=== PATIENT | female | born 2005 | race Hispanic/Latino ===

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

== ENCOUNTER 2023-03-18 07:54 | Emergency (ER) | payer OTHER ==
--- OUTSIDE RECORDS SUMMARY | 2023-03-18 07:58 | XMS REPORT | Continuity of Care Document ---
:2005 Author Organization [facility] t Address [address] [facility]. [address] [place] [address] Care Team Providers Name Role Phone Shaila Silver Primary Care Physician [phone] SHAILA IZAGUIRRE Attending Clinician Unavailable Visit, Ang[facility] Nurse Attending Clinician Unavailable Shaila Silver Attending Clinician [phone] Doctor Unassigned, [place] Attending Clinician Unavailable SARAH BALBUENA Attending Clinician Unavailable Sarah Balbuena DO Attending Clinician AMOL VARMA Attending Clinician Unavailable Leila Conner Attending Clinician [phone] Amol Carmichael Attending Clinician Simone RN, Ruthann R Attending Clinician Unavailable ROXANA BORREGO Attending Clinician Unavailable Only, Gallo Db Test Attending Clinician Unavailable Roxana Yates Attending Clinician Valentín Lyons DO Attending Clinician Lab, Adc Fam Pob I Attending Clinician Unavailable Payers Payer Name Policy Type Policy Number Effective Date Expiration Date Arthur HEBERT [id number] 2018 00:00:00 [place] [id number] 2021 00:00:00 Problems Condition Condition Condition Status [place] [facility] Allergies, Adverse Reactions, Alerts Allergy Allergy Status Severity Reaction(s) Onset Inactive Treating Comm ents Source Name Type Date Date Clinician NO KNOWN Drug Active Univers ALLERGIE Class ity of S [facility] Social History Social Habit Start Date Stop Date Quantity Comments Source Gender identity Universit y [facility] Sexual orientation [facility] [place] Alcohol intake 2023-01-07 2023-01-07 Lifetime University of 00:00:00 00:00:00 non-drinker [facility] (finding) [place] Tobacco use and 2022-10-15 2022-10-15 Smokeless Universit y of exposure 00:00:00 00:00:00 tobacco non-user [facility] Exposure to 2022-07-13 2022-07-23 Not sure [facility] SARS-CoV-2 (event) 00:00:00 09:12:00 [facility] History of Social 2022-04-30 2022-04-30 Univers ity of function 00:00:00 00:00:00 [facility] Sex Assigned At [birth year] Universit y of 00:00:00 00:00:00 [facility] Smoking Status Start Date Stop Date Source Never smoked tobacco [facility] Medications Ordered Filled Start Stop Current Ordering Indication Dosage Frequency Signature Comments Components Source Medication Medication Date Date Medication? Clinician (SIG) Name Name medroxyPROG 2023- No [id number] 150mg Univers ESTERone 6-20 - ity of (DEPO-PROVE 20:15: 20:14 [place] RA) syringe 00 :00 Medical 150 mg [place] medroxyPROG 2023- No [id number] 150mg 150 mg, Univers ESTERone 6-20 -21 Intramuscu ity of (DEPO-PROVE 20:15: 20:14 lar, [place] RA) syringe 00 :00 [id number], Med ical 150 mg 4 doses, Branch First dose on Fri10/15/22 at 1515, Last dose on Fri06/24/23 at 1515, Routine medroxyPROG 2023- No [id number] 150mg Univers ESTERone 10-15 ity of (DEPO-PROVE 20:15: 20:14 [place] RA) syringe 00 :00 Medical 150 mg Branch medroxyPROG 2023- No [id number] 150mg 150 mg, Univers ESTERone 10-15 Intramuscu ity of (DEPO-PROVE 20:15: 20:14 [facility], [place] RA) syringe 00 :00 [id number], Med ical 150 mg 4 doses, Branch First dose on Fri10/15/22 at 1515, Last dose on Fri06/24/23 at 1515, Routine medroxyPROG 2023- No [id number] 150mg Univers ESTERone 10-15 ity of (DEPO-PROVE 20:15: 20:14 [place] RA) syringe 00 :00 Medical 150 mg Branch medroxyPROG 2023- No [id number] 150mg 150 mg, Univers ESTERone 10-15 Intramuscu ity of (DEPO-PROVE 20:15: 20:14 [facility], [place] RA) syringe 00 :00 [id number], Med ical 150 mg 4 doses, Branch First dose on Fri10/15/22 at 1515, Last dose on Fri06/24/23 at 1515, Routine medroxyPROG 2021-04- No [id number] 150mg Univers ESTERone 07-23 ity of (DEPO-PROVE 14:45: 14:44 [place] RA) syringe 00 :00 Medical 150 mg Branch medroxyPROG 2021-04- No [id number] 150mg 150 mg, Univers ESTERone 007-23 Intramuscu ity of (DEPO-PROVE 14:45: 14:44 [facility], [place] RA) syringe 00 :00 [id number], Med ical 150 mg 2 doses, Branch First dose on Fri02/05/22 at 0945, Last dose on Fri04/30/22 at 0945, Routine medroxyPROG 2021-043- No [id number] 150mg 150 mg, Univers ESTERone 003 Intramuscu ity of (DEPO-PROVE 14:45: 14:48 [facility], [place] RA) syringe 00 :00 [id number], Med ical 150 mg 2 doses, Branch First dose on Fri02/05/22 at 0945, Last dose on Fri04/30/22 at 0945, Routine medroxyPROG 2022-0 3- No [id number] 150mg Univers ESTERone 07-23 ity of (DEPO-PROVE 16:00: 16:44 [place] RA) 00 :00 Medical injection Branch 150 mg medroxyPROG 2022-0 2022- No [id number] 150mg 150 mg, Univers ESTERone 07-23 Intramuscu ity of (DEPO-PROVE 16:00: 16:44 [facility], [place] RA) 00 :00 [id number], Medical injection 4 doses, Branch 150 mg First dose on Fri07/23/21 at 1100, Last dose on Fri04/01/22 at 1100, Routine medroxyPROG 2022-0 3- No [id number] 150mg Univers ESTERone 07-23 ity of (DEPO-PROVE 16:00: 16:44 [place] RA) 00 :00 Medical injection Branch 150 mg medroxyPROG 2022-0 3- No [id number] 150mg Univers ESTERone 07-23 ity of (DEPO-PROVE 16:00: 16:44 [place] RA) 00 :00 Medical injection Branch 150 mg medroxyPROG 2022-0 3- No [id number] 150mg Univers ESTERone 07-23 ity of (DEPO-PROVE 16:00: 16:44 [place] RA) 00 :00 Medical injection Branch 150 mg medroxyPROG 2022-0 3- No [id number] 150mg Univers ESTERone -06-24 ity of (DEPO-PROVE 16:00: 16:44 [place] RA) 00 :00 Medical injection Branch 150 mg medroxyPROG 2022-0 2023- No [id number] 150mg Univers ESTERone 3-28 02-27 ity of (DEPO-PROVE 16:00: 16:44 [place] RA) 00 :00 Medical injection Branch 150 mg medroxyPROG 2022- No [id number] 150mg Univers ESTERone 07-23 ity of (DEPO-PROVE 16:00: 16:44 [place] RA) 00 :00 Medical injection Branch 150 mg medroxyPROG 2022- No [id number] 150mg 150 mg, Univers ESTERone 07-23 Intramuscu ity of (DEPO-PROVE 16:00: 16:44 lar, [place] RA) 00 :00 [id number], Medical injection 4 doses, Branch 150 mg First dose on Fri07/23/21 at 1100, Last dose on Fri04/01/22 at 1100, Routine medroxyPROG 2020-04- No [id number] 150mg Univers ESTERone 001-08 ity of (DEPO-PROVE 13:45: 13:44 [place] RA) 00 :00 Medical injection Branch 150 mg medroxyPROG 2020-04- No [id number] 150mg Univers ESTERone 0- ity of (DEPO-PROVE 13:45: 13:44 [place] RA) 00 :00 Medical injection Branch 150 mg medroxyPROG 2020-04- No [id number] 150mg Univers ESTERone 0- ity of (DEPO-PROVE 13:45: 13:44 [place] RA) 00 :00 Medical injection Branch 150 mg Vital Signs Vital Name Observation Time Observation Value Comments Source Systolic blood 2023-01-07 19:04:00 115 mm[Hg] Univer sity of pressure [facility] Diastolic blood 2023-01-07 19:04:00 63 mm[Hg] Unive rsity of pressure [facility] Heart rate 2023-01-07 19:04:00 65 /min [facility] Body temperature 2023-01-07 19:04:00 36.39 Lauren [facility] Respiratory rate 2023-01-07 19:04:00 18 /min [facility] Body height 2023-01-07 19:04:00 157.5 cm [facility] Body weight 2023-01-07 19:04:00 57.862 kg [facility] [place] [facility] BMI 2023-01-07 19:04:00 23.33 kg/m2 [facility] [place] [facility] Systolic blood 2022-10-15 19:02:00 108 mm[Hg] Univer sity of pressure [place] [facility] Diastolic blood 2022-10-15 19:02:00 64 mm[Hg] Unive rsity of pressure [facility] Heart rate 2022-10-15 19:02:00 80 /min [facility] [place] [facility] Body temperature 2022-10-15 19:02:00 36.67 Lauren [facility] [place] [facility] Respiratory rate 2022-10-15 19:02:00 18 /min Univ [facility] [place] [facility] Body height 2022-10-15 19:02:00 157.5 cm [facility] [place] [facility] Body weight 2022-10-15 19:02:00 57.743 kg [facility] [place] [facility] BMI 2022-10-15 19:02:00 23.28 kg/m2 [facility] [place] [facility] Systolic blood 2022-07-23 14:24:00 103 mm[Hg] Univer sity of pressure [place] [facility] Diastolic blood 2022-07-23 14:24:00 64 mm[Hg] Unive rsity of pressure [facility] Heart rate 2022-07-23 14:24:00 63 /min [facility] [place] [facility] Body temperature 2022-07-23 14:24:00 36.5 Lauren [facility] [place] [facility] Respiratory rate 2022-07-23 14:24:00 16 /min Univ ers[facility] [place] [facility] Body height 2022-07-23 14:24:00 157.5 cm [facility] [place] [facility] Body weight 2022-07-23 14:24:00 58.469 kg [facility] [place] [facility] BMI 2022-07-23 14:24:00 23.58 kg/m2 [facility] [place] [facility] Systolic blood 2022-04-30 14:39:00 119 mm[Hg] Univer sity of pressure [place] [facility] Diastolic blood 2022-04-30 14:39:00 56 mm[Hg] Unive rsity of pressure [facility] Heart rate 2022-04-30 14:39:00 61 /min [facility] [place] [facility] Body temperature 2022-04-30 14:39:00 36.72 Lauren [facility] [place] [facility] Respiratory rate 2022-04-30 14:39:00 18 /min Univ [facility] [place] [facility] Body height 2022-04-30 14:39:00 157.5 cm [facility] [place] [facility] Body weight 2022-04-30 14:39:00 56.359 kg [facility] [place] [facility] BMI 2022-04-30 14:39:00 22.73 kg/m2 Universi ty of [facility] Branch Systolic blood 2022-02-05 13:50:00 108 mm[Hg] Univer sity of pressure [facility] Branch Diastolic blood 2022-02-05 13:50:00 51 mm[Hg] Unive rsity of pressure [facility] Heart rate 2022-02-05 13:50:00 62 /min Universi ty of [facility] Body temperature 2022-02-05 13:50:00 36.61 Lauren [facility] [place] [facility] Respiratory rate 2022-02-05 13:50:00 18 /min Univ ersity of [facility] Branch Body height 2022-02-05 13:50:00 157.5 cm [facility] [place] [facility] Body weight 2022-02-05 13:50:00 57.017 kg [facility] [place] [facility] BMI 2022-02-05 13:50:00 22.99 kg/m2 [facility] [place] [facility] [place] Body mass index 2022-02-05 13:50:00 66.08 % Unive rsity of (BMI) [Percentile] [place] [facility] ical Per age and sex Branch Systolic blood 2022-01-22 14:14:00 108 mm[Hg] Univer sity of pressure [place] [facility] Diastolic blood 2022-01-22 14:14:00 65 mm[Hg] Unive rsity of pressure [place] [facility] Heart rate 2022-01-22 14:14:00 71 /min Universi ty of [facility] Body temperature 2022-01-22 14:14:00 36.44 Lauren Univ ersity of [facility] Branch Respiratory rate 2022-01-22 14:14:00 18 /min Univ [facility] [place] [facility] Body height 2022-01-22 14:14:00 157.5 cm Universi ty of [facility] Body weight 2022-01-22 14:14:00 56.728 kg Universi ty of [facility] BMI 2022-01-22 14:14:00 22.87 kg/m2 Universi ty of [facility] Body mass index 2022-01-22 14:14:00 65.07 % Unive rsity of (BMI) [Percentile] [facility] ica Per age and sex Branch Systolic blood 2021-09-13 13:20:00 115 mm[Hg] Univer sity of pressure [facility] Diastolic blood 2021-09-13 13:20:00 48 mm[Hg] Unive rsity of pressure [facility] Heart rate 2021-09-13 13:20:00 59 /min Universi ty of [facility] Body temperature 2021-09-13 13:20:00 37.28 Lauren Univ ersity of [facility] Respiratory rate 2021-09-13 13:20:00 18 /min Univ ersity of [facility] Body weight 2021-09-13 13:20:00 57.607 kg Universi ty of [facility] Oxygen saturation in 2021-09-13 13:20:00 99 /min [facility] Arterial blood by [facility] Pulse oximetry Branch Systolic blood 2021-07-23 15:21:00 110 mm[Hg] Univer sity of pressure [facility] Diastolic blood 2021-07-23 15:21:00 54 mm[Hg] Unive rsity of pressure [facility] Heart rate 2021-07-23 15:21:00 72 /min Universi ty of [facility] Body temperature 2021-07-23 15:21:00 36.28 Lauren Univ ersity of [facility] Respiratory rate 2021-07-23 15:21:00 20 /min Univ ersity of [facility] Body height 2021-07-23 15:21:00 157.5 cm Universi ty of [facility] Body weight 2021-07-23 15:21:00 57.777 kg Universi ty of [facility] BMI 2021-07-23 15:21:00 23.30 kg/m2 Universi ty of [facility] Body mass index 2021-07-23 15:21:00 70.26 % Unive rsity of (BMI) [Percentile] [place] Med ical Per age and sex Branch Procedures Procedure Date / Time Performed Performing Clinician Claude chacko ASSIGNMENT OF BENEFITS 2022-10-15 18:41:55 Doctor Unassigned, No [facility] Name [facility] POCT TEST 2022-01-22 14:17:00 [facility] 2021-09-13 13:25:00 Sarah Balbuena [facility] URINALYSIS 2021-09-13 13:24:00 Sarah Balbuena [facility] CONSENT/REFUSAL FOR 2021-09-13 13:16:37 Doctor Unassigned, [facility] TREAT[facility] GC & CHLAMYDIA 2021-07-23 15:53:00 Shaila Izaguirre [facility] AMPLIFIED ASSAY [facility] POCT TEST 2021-07-23 15:42:[address] [facility] Encounters Start End Encounter Admission Attending Care Care Encounter Source Date/Time Date/Time Type Type Clinicians Facility Department ID 2021-02-25 Emergency [facility] [id number] Univers 13:02:37 ity [facility] 2023-01-07 2023-01-07 Outpatient R DMITRIY [facility] [id number] Univers 13:00:00 14:10:36 SHAILA romero [facility] 2023-01-07 2023-01-07 Nurse Visit, [facility] Nurse [facility] 1.2 .840.114 [id number] Univers 13:00:00 14:10:36 Visit Shaila Izaguirre MACHINE SETUP OPERATOR [facility].13. [facility] 4.2.7.2.686 [place] as MATERNAL [id number] Med ical & CHILD [address] [place] [address] 2022-10-15 2022-10-15 Outpatient R DMITRIY [facility] [id number] Univers 13:30:00 15:08:26 SHAILA norman f [facility] 2022-10-15 2022-10-15 Office Dmitriy [facility] [id number] Univers 13:30:00 15:08:26 Visit Shaila C MACHINE SETUP OPERATOR 350.1.13.10 ity of [facility] 4.2.7.2.686 [place] as MATERNAL [id number] [facility] [address] [place] [address] 2022-10-15 2022-10-15 Orders Doctor THELMA 1.2.840.114 [id number] Univers 00:00:00 00:00:00 Only Unassigned, TIFFANY 350.1.13.10 [facility] 4.2.7.2.686 [place] as [id number] [address] 2022-07-23 2022-07-23 Outpatient R DMITRIY [facility] [id number] Univers 09:30:00 09:34:03 SHAILA palafox o [facility] 2022-07-23 2022-07-23 [facility] 1.2 .840.114 [id number] Univers 09:30:00 09:34:03 Visit Shaila Izaguirre MACHINE SETUP OPERATOR 350.1.13. 10 ity of [facility] 4.2.7.2.686 [place] MATERNAL [id number] [address] 2022-04-30 2022-04-30 Outpatient R DMITRIY [facility] [id number] Univers 08:30:00 08:48:20 SHAILA palafox o [facility] 2022-04-30 2022-04-30 Nurse [facility], [facility] 1.2 .840.114 [id number] Univers 08:30:00 08:48:20 Visit Shaila Izaguirre MACHINE SETUP OPERATOR 350.1.13. 10 ity of [facility] 4.2.7.2.686 [place] as MATERNAL [id number] [facility] & CHILD [address] [place] [address] 2022-02-05 2022-02-05 Nurse Visit, Maribel Nurse [facility] 1.2 .840.114 [id number] Univers 08:30:00 08:54:05 Visit Shaila Izaguirre MACHINE SETUP OPERATOR 350.1.13. 10 ity of REGIONAL 4.2.7.2.686 [place] as MATERNAL [id number] [facility] & [address] 2022-02-05 2022-02-05 Outpatient R DMITRIY [facility] [id number] Univers 08:30:00 08:30:00 SHAILA romero [facility] 2022-01-22 2022-01-22 Nurse Visit, [facility] 1.2 .840.114 [id number] Univers 09:00:00 09:31:08 Visit Shaila Izaguirre Elida MACHINE SETUP OPERATOR 350.1.13. 10 ity of REGIONAL 4.2.7.2.686 [place] MATERNAL [id number] [address] 2022-01-22 2022-01-22 [facility] [id number] Univers 09:00:00 09:00:00 SHAILA romero [facility] 2022-01-22 2022-01-22 Letter Visit, [facility] 1.2.840.114 [id number] Univers 00:00:00 00:00:00 (Out) [facility] MACHINE SETUP OPERATOR 350.1.13.10 ity of Nurse [facility] 4.2.7.2.686 [place] as MATERNAL [id number] [address] 2021-10-15 2021-10-15 Outpatient R [facility] [id number] Univers 09:00:00 09:00:00 ity [facility] 2021-10-15 2021-10-15 [facility] [id number] Univers 09:00:00 09:00:00 SHAILA norman heather [facility] 2021-09-13 2021-09-13 Emergency X SREE NDMCKAYLA ERT [id number] Univers 08:23:00 10:01:00 SARAH palafox [facility] 2021-09-13 2021-09-13 Emergency Sree [facility] 1.2.840.114 [id number] Univers 08:23:00 10:01:00 Sarah ARTIS 350.1.13.10 ity of [place] 4.2.7.2.686 [facility] [id number] [facility] [address] [place] 2021-09-12 2021-09-12 [facility] 1.2.840.114 [id number] Univers 00:00:00 00:00:00 Shaila C MACHINE SETUP OPERATOR 350.1.13.10 ity of [facility] 4.2.7.2.686 [place] MATERNAL [id number] [facility] [address] [place] [address] 2021-07-23 2021-07-23 Office [facility] [id number] Univers 10:00:00 10:54:38 Visit Shaila Marrero MACHINE SETUP OPERATOR 350.1.13.10 ity of [facility] 4.2.7.2.686 [place] as MATERNAL [id number] [facility] & [address] 2021-07-23 2021-07-23 Outpatient [facility] [id number] Univers 10:00:00 10:54:38 SHAILA palafox o [facility] 2021-07-23 2021-07-23 Outpatient [facility] [id number] Univers 10:00:00 10:00:00 SHAILA overtony o f [facility] 2021-07-23 2021-07-23 Outpatient [facility] [id number] Univers 10:00:00 10:00:00 SHAILA palafox o [facility] 2021-07-23 2021-07-23 Orders Doctor THELMA 1.2.840.114 [id number] Univers 00:00:00 00:00:00 Only Unassigned, TIFFANY 350.1.13.10 ity of [place] [facility] 4.2.7.2.686 [place] as [id number] [facility] [address] [place] 2021-07-23 2021-07-23 Letter [facility] 1.2.862.482 [id number] Univers 00:00:00 00:00:00 (Out) Shaila Marrero MACHINE SETUP OPERATOR 350.1.13.10 ity of [facility] 4.2.7.2.686 [place] MATERNAL [id number] [facility] [address] [place] [address] 2021-07-05 2021-07-05 Outpatient Jeremiah IZAGUIRRE [facility] [id number] Univers 10:00:00 10:14:48 SHAILASHERICE romero [facility] 2021-07-05 2021-07-05 Nurse Visit, [facility] Nurse [facility] 1.2 .840.114 [id number] Univers 10:00:00 10:14:48 Visit Shaila Izaguirre MACHINE SETUP OPERATOR 350.1.13. 10 ity of [facility] 4.2.7.2.686 [place] as MATERNAL [id number] [facility] [address] [place] [address] 2021-07-05 2021-07-05 Office Dmitriy [facility] [id number] Univers 09:45:00 10:00:00 Visit Shaila Marrero MACHINE SETUP OPERATOR 350.1.13.10 ity of [facility] 4.2.7.2.686 [place] MATERNAL [id number] Med ical & CHILD [address] [place] [address] 2021-07-05 2021-07-05 Outpatient Jeremiah IZAGUIRRE [facility] [id number] Univers 09:45:00 09:45:00 SHAILA vivienne norman [facility] 2021-07-05 2021-07-05 Letter Dmitriy [facility] [id number] Univers 00:00:00 00:00:00 (Out) Shaila Marrero MACHINE SETUP OPERATOR 350.1.13.10 ity of [facility] 4.2.7.2.686 [place] as MATERNAL [id number] [facility] & CHILD [address] [place] [address] 2021-06-06 2021-06-06 Outpatient Jeremiah VARMA [facility] [id number] Univers 08:30:00 08:30:00 AMOL palafox o [facility] 2021-05-01 2021-05-01 Outpatient Jeremiah VARMA [facility] [id number] Univers 08:30:00 08:30:00 AMOL norman [facility] 2021-02-06 2021-02-06 Nurse Visit, TheoRmchp Nurse [facility] 1.2 .840.114 [id number] Univers 08:05:48 08:33:13 Visit Leila Pathak MACHINE SETUP OPERATOR 350.1.13 .10 ity [facility] 4.2.7.2.686 [place] as MATERNAL [id number] [facility] & [address] 2021-02-06 2021-02-06 Outpatient R HOLLY [facility] [id number] Univers 08:30:00 08:30:00 LEILA [facility] 2021-02-05 2021-02-05 Outpatient R [facility] [id number] Univers 14:00:00 14:00:00 [facility] 2021-01-22 2021-01-22 Nurse Visit, Maribel Nurse [facility] 1.2 .840.114 [id number] Univers 14:06:34 14:21:34 Visit Amol Varma MACHINE SETUP OPERATOR 350.1.13.10 ity [facility] 4.2.7.2.686 [place] as MATERNAL [id number] [facility] & CHILD [address] [place] [address] 2021-01-22 2021-01-22 Outpatient R [facility] [id number] Univers 14:00:00 14:00:00 [facility] 2020-12-23 2020-12-23 Telephone THELMA [place] [id number] Univers 00:00:00 00:00:00 Ruthann ALLEN 350.1.13.10 it [facility] 4.2.7.2.686 [place] as [id number] [address] 2020-12-22 2020-12-22 Outpatient R ELMO [facility] [id number] Univers 10:10:00 10:10:00 [facility] 2020-12-22 2020-12-22 Laboratory Only, Ang Db Test [facility] 1.2.8 40.114 [id number] Univers 09:58:55 10:08:55 Only Elmo [facility] 350.1.13.10 [facility] 4.2.7.2.686 [place] as Celso?Blea [id number] La randy murrieta [address] [place] [address] Medical Office Building 2020-10-04 2020-10-04 Outpatient R [facility] [id number] Univers 10:00:00 10:00:00 ity of [facility] 2020-09-20 2020-09-20 Nurse Visit, Gallo-Rmchp Nurse [facility] 1.2 .840.114 [id number] Univers 13:26:42 13:56:43 Visit Amol Varma MACHINE SETUP OPERATOR 350.1.13.10 ity [facility] 4.2.7.2.686 [place] as MATERNAL [id number] Med ical & CHILD [address] [place] [address] 2020-09-20 2020-09-20 Outpatient R [facility] [id number] Univers 13:45:00 13:45:00 ity of [facility] 2020-09-20 2020-09-20 Outpatient R AVANI [facility] [id number] Univers 08:30:00 08:30:00 AMOL ity o f [facility] 2020-09-20 2020-09-20 Orders Doctor THELMA [id number] Univers 00:00:00 00:00:00 Only Unassigned, TIFFANY [id number] ity of [place] [facility] [id number] [place] as [phone] [facility] [address] 2020-09-19 2020-09-19 Outpatient R [facility] [id number] Univers 10:00:00 10:00:00 ity of [facility] 2020-08-10 2020-08-10 Emergency Singer [facility] [id number] Univers 08:20:00 10:10:00 Valentín Artis [id number] i ty [facility] [id number] [place] [phone] [facility] [address] 2020-08-10 2020-08-10 Orders Doctor RENEE [id number] Univers 00:00:00 00:00:00 Only UnassignedTIFFANY [id number] ity of [place] [facility] [id number] [place] as [phone] [address] 2020-08-03 2020-08-03 Outpatient R AVANI [facility] [id number] Univers 15:30:00 15:30:00 AMOL palafox o heather [facility] 2020-08-03 2020-08-03 Outpatient R [facility] [id number] Univers 09:30:00 09:30:00 ity [facility] 2020-07-20 2020-07-20 [facility] [id number] Univers 10:10:16 11:02:38 Visit [facility] Jeremiah MACHINE SETUP OPERATOR [id number] ity [facility] [id number] [place] as MATERNAL [phone] Med ical & CHILD [address] [place] [address] 2020-07-20 2020-07-20 Outpatient R AVANI [facility] [id number] Univers 09:15:00 09:15:00 HELIZBET romero [facility] 2020-07-20 2020-07-20 Orders Doctor THELMA 1..840.114 [id number] Univers 00:00:00 00:00:00 Only Unassigned, TIFFANY [id number] ity of [place] [facility] [id number] [place] as [phone] [address] 2020-05-02 2020-05-02 Outpatient R ELMO [facility] [id number] Univers 14:20:00 14:20:00 ROXANA ity [facility] 2020-05-02 2020-05-02 Laboratory Lab, Adc Fam Pob I [facility] 1.2. [id number] Univers 10:03:49 10:23:49 Only Elmo [id number] [facility] [id number] [place] as Professio [phone] La dical [facility] [address] 2020-05-01 2020-05-01 Telephone Singer [facility] [id number] Univers 00:00:00 00:00:00 Valentín [employer] [id number] it y of [place] [id number] [place] as Professio [phone] La dical nal [address] 2020-04-15 2020-04-15 Outpatient R ELMO [facility] [id number] Univers 16:20:00 16:20:00 ROXANA gregoria [facility] 2020-04-15 2020-04-15 Laboratory Lab, Adc Fam Pob I [facility] 1.2. [id number] [id number] Univers 15:25:01 15:45:01 Only Roxana Borrego [id number] ity of [place] [id number] [place] as Professio [phone] La dical nal 044 [facility] One Results Test Description Test Time Test Comments Results Result Comments Source POCT TEST 2022-01-22 14:17:00 Test Item Value Reference Range Interpretation Comme nts POCT PREG (test code = 1605) Negative On board controls acceptable with C Line (test code = 3574) Yes POCT PREG LOT # (test code = 3575) POCT PREG TEST DATE (test code = 3576) [facility] [id number] 13:25:00 Test Item Value Reference Range Interpretation Comments POCT PREG (test code = 1605) negative On board controls acceptable with present C Line (test code = 3574) POCT PREG LOT # (test code = 3575) [id number] POCT PREG TEST DATE (test code = 3576) Lab Interpretation (test code = Normal 89506-4) [facility] [id number] 15:42:00 Test Item Value Reference Range Interpretation Comments POCT PREG (test code = 1605) Negative On board controls acceptable with C Yes Line (test code = 3574) POCT PREG LOT # (test code = 3575) POCT PREG TEST DATE (test code = 3576) [facility]
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
[2023-03-18] MEDS ORDERED: SILVER SULFADIAZINE 1% 25 GM TOP ONE (08:19)
[2023-03-18] MEDS ORDERED: IBUPROFEN 200 MG TAB PO ONE (08:19)
[2023-03-18 08:34] VITALS: BP 115/68; TEMP 98.2; O2SAT 100
== END 2023-03-18 08:28 | disposition home or self-care (01) ==
LOC: ER 07:54
DX: T22.212A Burn of second degree of left forearm, initial encounter (principal); T31.0 Burns involving less than 10% of body surface; X10.2XXA Contact with fats and cooking oils, initial encounter; Y93.G3 Activity, cooking and baking
CPT/HCPCS: 99283

== ENCOUNTER 2023-10-16 12:12 | Emergency (ER) | payer SELFPAY ==
--- OUTSIDE RECORDS SUMMARY | 2023-10-16 12:15 | XMS REPORT | Continuity of Care Document ---
Author Name Unknown Address [address] [facility] [address] [place] [address] [facility] thconnect Address [address] [facility] [place] [address] Care Team Providers Care Inspector Outside Production Name Role Phone SHAILA IZAGUIRRE Primary Care Physician Unav ailLÁZARO eKith Attending Clinician Unavailable Provider, Maribel Temp Attending Clinician Violet vailable Zaida Quintero CNM Attending Clinician [phone] ZAIDA QUINTERO Attending Clinician Unavaila ble Visit, Kyliechkathy Nurse Attending Clinician Unava ilpeggy Izaguirre ANDREAPShaila Attending Clinician + SHAILA IZAGUIRRE Attending Clinician Unavail able Doctor Unassigned, [place] Attending Clinician U navailSARAH Jackson Attending Clinician Unavailab Sarah Falk DO Attending Clinician [phone] AMOL VARMA Attending Clinician Unavailab Leila Chavarria Attending Clinician +[phone] Amol Carmichael Attending Clinician [phone] Simone RN, Ruthann R Attending Clinician UnavailROXAAN Vogt Attending Clinician Unavailable Only, Gallo Db Ha Attending Clinician UnavailRoxana John Attending Clinician [phone] Valentín Lyons DO Attending Clinician [phone] Lab, Adc Fam Pob I Attending Clinician Unavailab le Payers Payer Name Policy Type Policy Number Effective Date Expirati on Date Source [employer] [id number] 2018 00:00:00 [facility] [id number] 2023 00:00:00 [place] [id number] 2021 00:00:00 Problems Condition Name Condition Details Condition Category Status Onset Date Resolution Date Last Treatment Date Treating Clinician Comments Source Other general counseling and advice for contracept joshua management Other general counseling and advice for contracept joshua management Disease Active 07-23 00:00: 00 [facility] Screening examinatio n for STD (sexually transmitte d disease) Screening examinatio n for STD (sexually transmitte d disease) Disease Active 07-20 00:00: 00 [facility] Need for HPV vaccinatio n Need for HPV vaccinatio n Disease Active 07-20 00:00: 00 [facility] Allergies, Adverse Reactions, Alerts Allergy Name Allergy Type Status Severity Reaction(s) Onset Date Inactive Date Treating Clinician Comments Source NO KNOWN ALLERGIE S Drug Class Active [facility] Social History Social Habit Start Date Stop Date Quantity Comments Source Gender identity [facility] Alcoholic beverage intake 2023-09-09 00:00:00 2023-09-09 00:00:00 Lifetime non-drinker (finding) [facility] History of Social function 2023-04-04 00:00:00 2023-04-04 00:00:00 [facility] Alcohol intake 2023-04-04 00:00:00 2023-04-04 00:00:00 Lifetime non-drinker (finding) [facility] Tobacco use and exposure 2022-10-15 00:00:00 2022-10-15 00:00:00 Smokeless tobacco non-user [facility] Exposure to SARS-CoV-2 (event) 2022-07-13 00:00:00 2022-07-23 09:12:00 Not sure [facility] Sex assigned at 2003 00:00:00 2005 00:00:00 [facility] Smoking Status Start Date Stop Date Source Never smoked tobacco [facility] Medications Ordered Medication Name Filled Medication Name Start Date Stop Date Current Medication? Ordering Clinician Indication Dosage Frequency Signature (SIG) Comments Components Source medroxyPROG ESTERone (DEPO-PROVE RA) 150 mg/mL syringe 09-08 00:00: 00 Yes [id number] 150mg 1 mL by Intramuscu lar route every 3 (three) months. [facility] medroxyPROG ESTERone (DEPO-PROVE RA) syringe 150 mg 10-15 20:15: 00 09-08 18:26 :08 No [id number] 150mg 150 mg, Intramuscu lar, [id number], 4 doses, First dose on Fri10/15/22 at 1515, Last dose on Fri06/24/23 at 1515, Routine [facility] medroxyPROG ESTERone (DEPO-PROVE RA) syringe 150 mg 2021-04 14:45: 00 04-30 14:48 :00 No [id number] 150mg 150 mg, Intramuscu lar, [id number], 2 doses, First dose on Fri02/05/22 at 0945, Last dose on Fri04/30/22 at 0945, Routine [facility] medroxyPROG ESTERone (DEPO-PROVE RA) injection 150 mg 07-23 16:00: 00 06-24 16:44 :00 No [id number] 150mg 150 mg, Intramuscu lar, [id number], 4 doses, First dose on Fri07/23/21 at 1100, Last dose on Fri04/01/22 at 1100, Routine [facility] medroxyPROG ESTERone (DEPO-PROVE RA) injection 150 mg 2020-04 012 13:45: 00 01-08 13:44 :00 No [id number] 150mg [facility] Immunizations Ordered Immunization Name Filled Immunization Name Date Status Comments Source HPV 2021-01-22 00:00:00 Completed [facility] HPV 2021-01-22 00:00:00 Completed [facility] HPV 2021-01-22 00:00:00 Completed [facility] HPV 2021-01-22 00:00:00 Completed [facility] HPV 2021-01-22 00:00:00 Completed [facility] HPV 2021-01-22 00:00:00 Completed [facility] HPV 2021-01-22 00:00:00 Completed [facility] HPV 2021-01-22 00:00:00 Completed [facility] HPV 2021-01-22 00:00:00 Completed [facility] HPV 2021-01-22 00:00:00 Completed [facility] HPV 2021-01-22 00:00:00 Completed [facility] HPV 2021-01-22 00:00:00 Completed [facility] SARS-COV-2 COVID-19 PFIZER VACCINE 2021-01-19 00:00:00 Completed [facility] SARS-COV-2 COVID-19 PFIZER VACCINE 2021-01-19 00:00:00 Completed [facility] SARS-COV-2 COVID-19 PFIZER VACCINE 2021-01-19 00:00:00 Completed [facility] SARS-COV-2 COVID-19 PFIZER VACCINE 2021-01-19 00:00:00 Completed [facility] SARS-COV-2 COVID-19 PFIZER VACCINE 2021-01-19 00:00:00 Completed [facility] SARS-COV-2 COVID-19 PFIZER VACCINE 2020-12-29 00:00:00 Completed [facility] SARS-COV-2 COVID-19 PFIZER VACCINE 2020-12-29 00:00:00 Completed [facility] SARS-COV-2 COVID-19 PFIZER VACCINE 2020-12-29 00:00:00 Completed [facility] SARS-COV-2 COVID-19 PFIZER VACCINE 2020-12-29 00:00:00 Completed [facility] SARS-COV-2 COVID-19 PFIZER VACCINE 2020-12-29 00:00:00 Completed [facility] HPV9 2020-09-20 00:00:00 Completed [facility] HPV9 2020-09-20 00:00:00 Completed [facility] HPV9 2020-09-20 00:00:00 Completed [facility] HPV9 2020-09-20 00:00:00 Completed [facility] HPV9 2020-09-20 00:00:00 Completed [facility] HPV9 2020-09-20 00:00:00 Completed [facility] HPV9 2020-09-20 00:00:00 Completed [facility] HPV9 2020-09-20 00:00:00 Completed [facility] HPV9 2020-09-20 00:00:00 Completed [facility] HPV9 2020-09-20 00:00:00 Completed [facility] HPV9 2020-09-20 00:00:00 Completed [facility] HPV9 2020-09-20 00:00:00 Completed [facility] HPV9 2020-07-20 00:00:00 Completed [facility] HPV9 2020-07-20 00:00:00 Completed [facility] HPV9 2020-07-20 00:00:00 Completed [facility] HPV9 2020-07-20 00:00:00 Completed [facility] HPV9 2020-07-20 00:00:00 Completed [facility] HPV9 2020-07-20 00:00:00 Completed [facility] HPV9 2020-07-20 00:00:00 Completed [facility] HPV9 2020-07-20 00:00:00 Completed [facility] HPV9 2020-07-20 00:00:00 Completed [facility] HPV9 2020-07-20 00:00:00 Completed [facility] HPV9 2020-07-20 00:00:00 Completed [facility] HPV9 2020-07-20 00:00:00 Completed [facility] TDAP 2014-06-16 00:00:00 Completed [facility] TDAP 2014-06-16 00:00:00 Completed [facility] TDAP 2014-06-16 00:00:00 Completed [facility] TDAP 2014-06-16 00:00:00 Completed [facility] TDAP 2014-06-16 00:00:00 Completed [facility] Varicella (varivax)(chicken pox) 2009-09-06 00:00:00 Completed [facility] Varicella (varivax)(chicken pox) 2009-09-06 00:00:00 Completed [facility] Varicella (varivax)(chicken pox) 2009-09-06 00:00:00 Completed [facility] Varicella (varivax)(chicken pox) 2009-09-06 00:00:00 Completed [facility] Varicella (varivax)(chicken pox) 2009-09-06 00:00:00 Completed [facility] DTaP, Unspecified Formulation 2008-08-24 00:00:00 Completed [facility] IPV 2008-08-24 00:00:00 Completed [facility] DTaP, Unspecified Formulation 2008-08-24 00:00:00 Completed [facility] IPV 2008-08-24 00:00:00 Completed [facility] DTaP, Unspecified Formulation 2008-08-24 00:00:00 Completed [facility] IPV 2008-08-24 00:00:00 Completed [facility] DTaP, Unspecified Formulation 2008-08-24 00:00:00 Completed [facility] IPV 2008-08-24 00:00:00 Completed [facility] DTaP, Unspecified Formulation 2008-08-24 00:00:00 Completed [facility] IPV 2008-08-24 00:00:00 Completed [facility] Pediarix (dtap/hep B/ipv) 2006-07-21 00:00:00 Completed [facility] HEPATITIS A 2006-07-21 00:00:00 Completed [facility] HIB 4 Dose Schedule 2006-07-21 00:00:00 Completed [facility] Proquad (MMR/VARICELLA) 2006-07-21 00:00:00 Completed [facility] Pediarix (dtap/hep B/ipv) 2006-07-21 00:00:00 Completed [facility] HEPATITIS A 2006-07-21 00:00:00 Completed [facility] HIB 4 Dose Schedule 2006-07-21 00:00:00 Completed [facility] Proquad (MMR/VARICELLA) 2006-07-21 00:00:00 Completed [facility] Pediarix (dtap/hep B/ipv) 2006-07-21 00:00:00 Completed [facility] HEPATITIS A 2006-07-21 00:00:00 Completed [facility] HIB 4 Dose Schedule 2006-07-21 00:00:00 Completed [facility] Proquad (MMR/VARICELLA) 2006-07-21 00:00:00 Completed [facility] Pediarix (dtap/hep B/ipv) 2006-07-21 00:00:00 Completed [facility] HEPATITIS A 2006-07-21 00:00:00 Completed [facility] HIB 4 Dose Schedule 2006-07-21 00:00:00 Completed [facility] Proquad (MMR/VARICELLA) 2006-07-21 00:00:00 Completed [facility] Pediarix (dtap/hep B/ipv) 2006-07-21 00:00:00 Completed [facility] HEPATITIS A 2006-07-21 00:00:00 Completed [facility] HIB 4 Dose Schedule 2006-07-21 00:00:00 Completed [facility] Proquad (MMR/VARICELLA) 2006-07-21 00:00:00 Completed [facility] HEPATITIS A 2005-04-23 00:00:00 Completed [facility] MMR 2005-04-23 00:00:00 Completed [facility] Varicella (varivax)(chicken pox) 2005-04-23 00:00:00 Completed [facility] HEPATITIS A 2005-04-23 00:00:00 Completed [facility] MMR 2005-04-23 00:00:00 Completed [facility] Varicella (varivax)(chicken pox) 2005-04-23 00:00:00 Completed [facility] HEPATITIS A 2005-04-23 00:00:00 Completed [facility] MMR 2005-04-23 00:00:00 Completed [facility] Varicella (varivax)(chicken pox) 2005-04-23 00:00:00 Completed [facility] HEPATITIS A 2005-04-23 00:00:00 Completed [facility] MMR 2005-04-23 00:00:00 Completed [facility] Varicella (varivax)(chicken pox) 2005-04-23 00:00:00 Completed [facility] HEPATITIS A 2005-04-23 00:00:00 Completed [facility] MMR 2005-04-23 00:00:00 Completed [facility] Varicella (varivax)(chicken pox) 2005-04-23 00:00:00 Completed [facility] Pediarix (dtap/hep B/ipv) 2005-03-26 00:00:00 Completed [facility] HIB 3 Dose Schedule 2005-03-26 00:00:00 Completed [facility] Pneumococcal 7 Conjugate, PCV7 (Prevnar7) 2005-03-26 00:00:00 Completed [facility] Pediarix (dtap/hep B/ipv) 2005-03-26 00:00:00 Completed [facility] HIB 3 Dose Schedule 2005-03-26 00:00:00 Completed [facility] Pneumococcal 7 Conjugate, PCV7 (Prevnar7) 2005-03-26 00:00:00 Completed [facility] Pediarix (dtap/hep B/ipv) 2005-03-26 00:00:00 Completed [facility] HIB 3 Dose Schedule 2005-03-26 00:00:00 Completed [facility] Pneumococcal 7 Conjugate, PCV7 (Prevnar7) 2005-03-26 00:00:00 Completed [facility] Pediarix (dtap/hep B/ipv) 2005-03-26 00:00:00 Completed [facility] HIB 3 Dose Schedule 2005-03-26 00:00:00 Completed [facility] Pneumococcal 7 Conjugate, PCV7 (Prevnar7) 2005-03-26 00:00:00 Completed [facility] Pediarix (dtap/hep B/ipv) 2005-03-26 00:00:00 Completed [facility] HIB 3 Dose Schedule 2005-03-26 00:00:00 Completed [facility] Pneumococcal 7 Conjugate, PCV7 (Prevnar7) 2005-03-26 00:00:00 Completed [facility] Pediarix (dtap/hep B/ipv) 2003 00:00:00 Completed [facility] HIB 4 Dose Schedule 2003 00:00:00 Completed [facility] Pneumococcal 7 Conjugate, PCV7 (Prevnar7) 2003 00:00:00 Completed [facility] Pediarix (dtap/hep B/ipv) 2003 00:00:00 Completed [facility] HIB 4 Dose Schedule 2003 00:00:00 Completed [facility] Pneumococcal 7 Conjugate, PCV7 (Prevnar7) 2003 00:00:00 Completed [facility] Pediarix (dtap/hep B/ipv) 2003 00:00:00 Completed [facility] HIB 4 Dose Schedule 2003 00:00:00 Completed [facility] Pneumococcal 7 Conjugate, PCV7 (Prevnar7) 2003 00:00:00 Completed [facility] Pediarix (dtap/hep B/ipv) 2003 00:00:00 Completed [facility] HIB 4 Dose Schedule 2003 00:00:00 Completed [facility] Pneumococcal 7 Conjugate, PCV7 (Prevnar7) 2003 00:00:00 Completed [facility] Pediarix (dtap/hep B/ipv) 2003 00:00:00 Completed [facility] HIB 4 Dose Schedule 2003 00:00:00 Completed [facility] Pneumococcal 7 Conjugate, PCV7 (Prevnar7) 2003 00:00:00 Completed [facility] Hep B, Adol or Pedi Dosage 2003 00:00:00 Completed [facility] Hep B, Adol or Pedi Dosage 2003 00:00:00 Completed [facility] Hep B, Adol or Pedi Dosage 2003 00:00:00 Completed [facility] Hep B, Adol or Pedi Dosage 2003 00:00:00 Completed [facility] Hep B, Adol or Pedi Dosage 2003 00:00:00 Completed [facility] HPV9 Unknown Completed [facility] HPV9 Unknown Completed [facility] HPV Unknown Completed [facility] SARS-COV-2 COVID-19 PFIZER VACCINE Unknown Completed [facility] SARS-COV-2 COVID-19 PFIZER VACCINE Unknown Completed [facility] DTaP, Unspecified Formulation Unknown Completed [facility] Pediarix (dtap/hep B/ipv) Unknown Completed [facility] Pediarix (dtap/hep B/ipv) Unknown Completed [facility] Pediarix (dtap/hep B/ipv) Unknown Completed [facility] HEPATITIS A Unknown Completed [facility] HEPATITIS A Unknown Completed [facility] Hep B, Adol or Pedi Dosage Unknown Completed [facility] HIB 3 Dose Schedule Unknown Completed [facility] HIB 4 Dose Schedule Unknown Completed [facility] HIB 4 Dose Schedule Unknown Completed [facility] MMR Unknown Completed [facility] Proquad (MMR/VARICELLA) Unknown Completed [facility] Pneumococcal 7 Conjugate, PCV7 (Prevnar7) Unknown Completed [facility] Pneumococcal 7 Conjugate, PCV7 (Prevnar7) Unknown Completed [facility] IPV Unknown Completed [facility] TDAP Unknown Completed [facility] Varicella (varivax)(chicken pox) Unknown Completed [facility] Varicella (varivax)(chicken pox) Unknown Completed [facility] HPV9 Unknown Completed [facility] HPV9 Unknown Completed [facility] HPV Unknown Completed [facility] SARS-COV-2 COVID-19 PFIZER VACCINE Unknown Completed [facility] SARS-COV-2 COVID-19 PFIZER VACCINE Unknown Completed [facility] DTaP, Unspecified Formulation Unknown Completed [facility] Pediarix (dtap/hep B/ipv) Unknown Completed [facility] Pediarix (dtap/hep B/ipv) Unknown Completed [facility] Pediarix (dtap/hep B/ipv) Unknown Completed [facility] HEPATITIS A Unknown Completed [facility] HEPATITIS A Unknown Completed [facility] Hep B, Adol or Pedi Dosage Unknown Completed [facility] HIB 3 Dose Schedule Unknown Completed [facility] HIB 4 Dose Schedule Unknown Completed [facility] HIB 4 Dose Schedule Unknown Completed [facility] MMR Unknown Completed [facility] Proquad (MMR/VARICELLA) Unknown Completed [facility] Pneumococcal 7 Conjugate, PCV7 (Prevnar7) Unknown Completed [facility] Pneumococcal 7 Conjugate, PCV7 (Prevnar7) Unknown Completed [facility] IPV Unknown Completed [facility] TDAP Unknown Completed [facility] Varicella (varivax)(chicken pox) Unknown Completed [facility] Varicella (varivax)(chicken pox) Unknown Completed [facility] HPV9 Unknown Completed [facility] HPV9 Unknown Completed [facility] HPV Unknown Completed [facility] SARS-COV-2 COVID-19 PFIZER VACCINE Unknown Completed [facility] SARS-COV-2 COVID-19 PFIZER VACCINE Unknown Completed [facility] DTaP, Unspecified Formulation Unknown Completed [facility] Pediarix (dtap/hep B/ipv) Unknown Completed [facility] Pediarix (dtap/hep B/ipv) Unknown Completed [facility] Pediarix (dtap/hep B/ipv) Unknown Completed [facility] HEPATITIS A Unknown Completed [facility] HEPATITIS A Unknown Completed [facility] Hep B, Adol or Pedi Dosage Unknown Completed [facility] HIB 3 Dose Schedule Unknown Completed [facility] HIB 4 Dose Schedule Unknown Completed [facility] HIB 4 Dose Schedule Unknown Completed [facility] MMR Unknown Completed [facility] Proquad (MMR/VARICELLA) Unknown Completed [facility] Pneumococcal 7 Conjugate, PCV7 (Prevnar7) Unknown Completed [facility] Pneumococcal 7 Conjugate, PCV7 (Prevnar7) Unknown Completed [facility] IPV Unknown Completed [facility] TDAP Unknown Completed [facility] Varicella (varivax)(chicken pox) Unknown Completed [facility] Varicella (varivax)(chicken pox) Unknown Completed [facility] Vital Signs Vital Name Observation Time Observation Value Comments S ource Systolic blood pressure 2023-09-09 18:06:00 99 mm[Hg] [facility] Diastolic blood pressure 2023-09-09 18:06:00 54 mm[Hg] [facility] Heart rate 2023-09-09 18:06:00 58 /[facility] 2023-09-09 18:06:00 36.67 Lauren [facility] Respiratory rate 2023-09-09 18:06:00 18 /min [facility] Body height 2023-09-09 18:06:00 157.5 cm [facility] Body weight 2023-09-09 18:06:00 60.963 kg [facility] BMI 2023-09-09 18:06:00 24.58 kg/m2 [facility] Systolic blood pressure 2023-04-04 19:39:00 112 mm[Hg] [facility] Diastolic blood pressure 2023-04-04 19:39:00 63 mm[Hg] [facility] Heart rate 2023-04-04 19:39:00 56 /min [facility] Body temperature 2023-04-04 19:39:00 36.89 Lauren [facility] Respiratory rate 2023-04-04 19:39:00 18 /min [facility] Body height 2023-04-04 19:39:00 157.5 cm [facility] Body weight 2023-04-04 19:39:00 57.561 kg [facility] BMI 2023-04-04 19:39:00 23.21 kg/m2 [facility] Systolic blood pressure 2023-01-07 19:04:00 115 mm[Hg] [facility] Diastolic blood pressure 2023-01-07 19:04:00 63 mm[Hg] [facility] Heart rate 2023-01-07 19:04:00 65 /min [facility] Body temperature 2023-01-07 19:04:00 36.39 Lauren [facility] Respiratory rate 2023-01-07 19:04:00 18 /min [facility] Body height 2023-01-07 19:04:00 157.5 cm [facility] Body weight 2023-01-07 19:04:00 57.862 kg [facility] BMI 2023-01-07 19:04:00 23.33 kg/m2 [facility] Systolic blood pressure 2022-10-15 19:02:00 108 mm[Hg] [facility] Diastolic blood pressure 2022-10-15 19:02:00 64 mm[Hg] [facility] Heart rate 2022-10-15 19:02:00 80 /min [facility] Body temperature 2022-10-15 19:02:00 36.67 Lauren [facility] Respiratory rate 2022-10-15 19:02:00 18 /min [facility] Body height 2022-10-15 19:02:00 157.5 cm [facility] Body weight 2022-10-15 19:02:00 57.743 kg [facility] BMI 2022-10-15 19:02:00 23.28 kg/m2 [facility] Systolic blood pressure 2022-07-23 14:24:00 103 mm[Hg] [facility] Diastolic blood pressure 2022-07-23 14:24:00 64 mm[Hg] [facility] Heart rate 2022-07-23 14:24:00 63 /min [facility] Body temperature 2022-07-23 14:24:00 36.5 Lauren [facility] Respiratory rate 2022-07-23 14:24:00 16 /min [facility] Body height 2022-07-23 14:24:00 157.5 cm [facility] Body weight 2022-07-23 14:24:00 58.469 kg [facility] BMI 2022-07-23 14:24:00 23.58 kg/m2 [facility] Systolic blood pressure 2022-04-30 14:39:00 119 mm[Hg] [facility] Diastolic blood pressure 2022-04-30 14:39:00 56 mm[Hg] [facility] Heart rate 2022-04-30 14:39:00 61 /min [facility] Body temperature 2022-04-30 14:39:00 36.72 Lauren [facility] Respiratory rate 2022-04-30 14:39:00 18 /min [facility] Body height 2022-04-30 14:39:00 157.5 cm [facility] Body weight 2022-04-30 14:39:00 56.359 kg [facility] BMI 2022-04-30 14:39:00 22.73 kg/m2 [facility] Systolic blood pressure 2022-02-05 13:50:00 108 mm[Hg] [place] [facility] pressure 2022-02-05 13:50:00 51 mm[Hg] [facility] Heart rate 2022-02-05 13:50:00 62 /min [facility] Body temperature 2022-02-05 13:50:00 36.61 Lauren [facility] Respiratory rate 2022-02-05 13:50:00 18 /min [facility] Body height 2022-02-05 13:50:00 157.5 cm [facility] Body weight 2022-02-05 13:50:00 57.017 kg [facility] BMI 2022-02-05 13:50:00 22.99 kg/m2 [facility] Body mass index (BMI) [Percentile] Per age and sex 2022-02-05 13:50:00 66.08 % [facility] Systolic blood pressure 2022-01-22 14:14:00 108 mm[Hg] [facility] Diastolic blood pressure 2022-01-22 14:14:00 65 mm[Hg] [facility] Heart rate 2022-01-22 14:14:00 71 /min [facility] Body temperature 2022-01-22 14:14:00 36.44 Lauren [facility] Respiratory rate 2022-01-22 14:14:00 18 /min [facility] Body height 2022-01-22 14:14:00 157.5 cm [facility] Body weight 2022-01-22 14:14:00 56.728 kg [facility] BMI 2022-01-22 14:14:00 22.87 kg/m2 [facility] Body mass index (BMI) [Percentile] Per age and sex 2022-01-22 14:14:00 65.07 % [facility] Systolic blood pressure 2021-09-13 13:20:00 115 mm[Hg] [facility] Diastolic blood pressure 2021-09-13 13:20:00 48 mm[Hg] [facility] Heart rate 2021-09-13 13:20:00 59 /min [facility] Body temperature 2021-09-13 13:20:00 37.28 Lauren [facility] Respiratory rate 2021-09-13 13:20:00 18 /min [facility] Body weight 2021-09-13 13:20:00 57.607 kg [facility] Oxygen saturation in Arterial blood by Pulse oximetry 2021-09-13 13:20:00 99 /min [facility] Systolic blood pressure 2021-07-23 15:21:00 110 mm[Hg] [facility] Diastolic blood pressure 2021-07-23 15:21:00 54 mm[Hg] [facility] Heart rate 2021-07-23 15:21:00 72 /min [facility] Body temperature 2021-07-23 15:21:00 36.28 Lauren [facility] Respiratory rate 2021-07-23 15:21:00 20 /min [facility] Body height 2021-07-23 15:21:00 157.5 cm [facility] Body weight 2021-07-23 15:21:00 57.777 kg [facility] BMI 2021-07-23 15:21:00 23.30 kg/m2 [facility] Body mass index (BMI) [Percentile] Per age and sex 2021-07-23 15:21:00 70.26 % [facility] Procedures Procedure Date / Time Performed Performing Clinicia n Source POCT TEST 2023-09-09 18:31:00 Lázaro Alfredo [facility] ASSIGNMENT OF BENEFITS 2022-10-15 18:41:55 Docto r Unassigned, [place] [facility] POCT TEST 2022-01-22 14:17:00 Rommel Izaguirre [facility] POCT TEST 2021-09-13 13:25:00 Karen Balbuena ra [facility] URINALYSIS 2021-09-13 13:24:00 [facility]AG[facility]IS AND TREATMENT 2021-09-13 13:16:37 Doctor Unassigned, [place] [facility] GC & CHLAMYDIA AMPLIFIED ASSAY 2021-07-23 15:53:00 Shaila Izaguirre [facility] POCT TEST 2021-07-23 15:42:00 Rommel Izaguirre [facility] Encounters Start Date/Time End Date/Time Encounter Type Admission Type Attending [facility] Facility Care Department Encounter ID Source 2021-02-25 13:02:37 Emergency [facility] [id number] [facility] 2023-09-09 13:15:00 2023-09-09 13:36:19 Outpatient R LÁZARO AFLREDO [facility] [id number] [facility] 2023-09-09 13:15:00 2023-09-09 13:36:19 Office Visit Provider, Zaida Mariscal Lázaro [facility] 1..840.114 350.1.13.10 4.2.7.2.686 [id number] 107 [id number] [facility] 2023-08-21 13:18:21 2023-08-21 13:18:21 Outpatient [facility] [id number] Michael Webber 2023-06-27 10:30:00 2023-06-27 10:30:00 Outpatient R [facility] [id number] [facility] 2023-04-04 13:00:00 2023-04-04 13:00:00 Nurse Visit Visit, Maribel Nurse Shaila Izaguirre [facility] 1..840.114 350.1.13.10 4.2.7.2.686 [id number] 107 [id number] [facility] 2023-04-04 13:00:00 2023-04-04 12:59:48 Outpatient R SHAILA IZAGUIRRE [facility] [id number] [facility] 2023-01-07 13:00:00 2023-01-07 14:10:36 [facility] [id number] [facility] 2023-01-07 13:00:00 2023-01-07 14:10:36 Nurse Visit Visit, Shaila Reeves [facility] & CHILD [facility] 1.840.114 350.1.13.10 4.2.7.2.686 [id number] [facility] 2022-10-15 13:30:00 2022-10-15 15:08:26 Outpatient R SHAILA IZAGUIRRE [facility] [id number] [facility] 2022-10-15 13:30:00 2022-10-15 15:08:26 Office Visit Shaila Izaguirre [facility] & CHILD [facility] 1.84.114 350.1.13.10 4.2.7.2.686 [id number] [facility] 2022-10-15 00:00:00 2022-10-15 00:00:00 Orders Only Doctor Unassigned, [place] [facility] 1.84.114 350.1.13.10 4.2.7.2.686 [id number] [facility] 2022-07-23 09:30:00 2022-07-23 09:34:03 Outpatient R SHAILA IZAGUIRRE [facility] [id number] [facility] 2022-07-23 09:30:00 2022-07-23 09:34:03 Nurse Visit Visit, Shaila Reeves [facility] 1.840.114 350.1.13.10 4.2.7.2.686 [id number] 107 [id number] [facility] 2022-04-30 08:30:00 2022-04-30 08:48:20 Outpatient SHAILA IRIZARRY NMMCKAYLA [facility] [id number] [facility] 2022-04-30 08:30:00 2022-04-30 08:48:20 Nurse Visit Visit, Shaila Reeves [facility] & CHILD [facility] 1..840.114 350.1.13.10 4.2.7.2.686 [id number] 107 [id number] [facility] 2022-02-05 08:30:00 2022-02-05 08:54:05 Nurse Visit Visit, Shail[facility]eves [facility] .840.114 350.1.13.10 4.2.7.2.686 [id number] 107 [id number] [facility] 2022-02-05 08:30:00 2022-02-05 08:30:00 Outpatient SHAILA IRIZARRY [facility] [id number] [facility] 2022-01-22 09:00:00 2022-01-22 09:31:08 Nurse Visit Visit, Shaila Reeves [facility] ..840.114 350.1.13.10 4.2.7.2.686 [id number] 107 [id number] [facility] 2022-01-22 09:00:00 2022-01-22 09:00:00 Outpatient SHAILA IRIZARRY [facility] [id number] [facility] 2022-01-22 00:00:00 2022-01-22 00:00:00 Letter (Out) Visit, Maribel Puckett [facility] .840.114 350.1.13.10 4.2.7.2.686 [id number] 107 [id number] [facility] 2021-10-15 09:00:00 2021-10-15 09:00:00 Outpatient R [facility] [id number] [facility] 2021-10-15 09:00:00 2021-10-15 09:00:00 Outpatient R SHAILA IZAGUIRRE [facility] [id number] [facility] 2021-09-13 08:23:00 2021-09-13 10:01:00 Emergency X SARAH BALBUENA [facility] ERT [id number] [facility] 2021-09-13 08:23:00 2021-09-13 10:01:00 Emergency Sarah Balbuena [facility] 1.2.840.114 350.1.13.10 4.2.7.2.686 [id number] [facility] 2021-09-12 00:00:00 2021-09-12 00:00:00 Telephone Shaila Izaguirre [facility] & CHILD [facility] 1.2.840.114 350.1.13.10 4.2.7.2.686 [id number] 107 [id number] [facility] 2021-07-23 10:00:00 2021-07-23 10:54:38 Office Visit Shaila Izaguirre [facility] & CHILD [facility] 1.2.840.114 350.1.13.10 4.2.7.2.686 [id number] 107 [id number] [facility] 2021-07-23 10:00:00 2021-07-23 10:54:38 Outpatient R SHAILA IZAGUIRRE [facility] [id number] [facility] 2021-07-23 10:00:00 2021-07-23 10:00:00 Outpatient R SHAILA IZAGUIRRE [facility] [id number] [facility] 2021-07-23 10:00:00 2021-07-23 10:00:00 Outpatient R SHAILA IZAGUIRRE [facility] [id number] [facility] 2021-07-23 00:00:00 2021-07-23 00:00:00 Orders Only Doctor Unassigned, [place] [facility] 1.840.114 350.1.13.10 4.2.7.2.686 [id number] [facility] 2021-07-23 00:00:00 2021-07-23 00:00:00 Letter (Out) Shaila Izaguirre [facility] & CHILD [facility] 1.84.114 350.1.13.10 4.2.7.2.686 [id number] 107 [id number] [facility] 2021-07-05 10:00:00 2021-07-05 10:14:48 Outpatient R SHAILA IZAGUIRRE [facility] [id number] [facility] 2021-07-05 10:00:00 2021-07-05 10:14:48 [facility] & CHILD [facility] 1.84.114 350.1.13.10 4.2.7.2.686 [id number] 107 [id number] [facility] 2021-07-05 09:45:00 2021-07-05 10:00:00 Office Visit Shaila Izaguirre [facility] 1.84.114 350.1.13.10 4.2.7.2.686 [id number] 107 [id number] [facility] 2021-07-05 09:45:00 2021-07-05 09:45:00 Outpatient R SHAILA IZAGUIRRE [facility] [id number] [facility] 2021-07-05 00:00:00 2021-07-05 00:00:00 Letter (Out) Shaila Izaguirre [facility] CHILD [facility] 1..840.114 350.1.13.10 4.2.7.2.686 [id number] 107 [id number] [facility] 2021-06-06 08:30:00 2021-06-06 08:30:00 Outpatient AMOL BLACKWOOD [facility] [id number] [facility] 2021-05-01 08:30:00 2021-05-01 08:30:00 Outpatient R AMOL VARMA [facility] [id number] [facility] 2021-02-06 08:05:48 2021-02-06 08:33:13 [facility] & CHILD [facility] ..840.114 350.1.13.10 4.2.7.2.686 [id number] [facility] 2021-02-06 08:30:00 2021-02-06 08:30:00 Outpatient R LEILA BARRERA [facility] [id number] [facility] 2021-02-05 14:00:00 2021-02-05 14:00:00 Outpatient R [facility] [id number] [facility] 2021-01-22 14:06:34 2021-01-22 14:21:34 Nurse Visit Visit, [facility] Amol Harper [facility] ..840.114 350.1.13.10 4.2.7.2.686 [id number] 107 [id number] [facility] 2021-01-22 14:00:00 2021-01-22 14:00:00 Outpatient R [facility] [id number] [facility] 2020-12-23 00:00:00 2020-12-23 00:00:00 Telephone Ruthann Nichols [facility] 1.840.114 350.1.13.10 4.2.7.2.686 [id number] [facility] 2020-12-22 10:10:00 2020-12-22 10:10:00 Outpatient R ELMO ROXANA [facility] [id number] [facility] 2020-12-22 09:58:55 2020-12-22 10:08:55 Laboratory Only Only, Ang Db [facility] 1.840.114 350.1.13.10 4.2.7.2.686 [id number] [facility] 2020-10-04 10:00:00 2020-10-04 10:00:00 Outpatient R [facility] [id number] [facility] 2020-09-20 13:26:42 2020-09-20 13:56:43 Nurse Visit Visit, [facility] Nurse Amol Varma [facility] 1..840.114 350.1.13.10 4.2.7.2.686 [id number] [facility] 2020-09-20 13:45:00 2020-09-20 13:45:00 Outpatient R [facility] [id number] [facility] 2020-09-20 08:30:00 2020-09-20 08:30:00 Outpatient R AMOL VARMA [facility] [id number] [facility] 2020-09-20 00:00:00 2020-09-20 00:00:00 Orders Only Doctor Unassigned, [place] [facility] 1..840.114 350.1.13.10 4.2.7.2.686 [id number] [facility] 2020-09-19 10:00:00 2020-09-19 10:00:00 Outpatient R [facility] [id number] [facility] 2020-08-10 08:20:00 2020-08-10 10:10:[address]ín Lyons [facility] 1.2840.114 350.1.13.10 4.2.7.2.686 [id number] [facility] 2020-08-10 00:00:00 2020-08-10 00:00:00 Orders Only Doctor Unassigned, [place] [facility] 1.284.114 350.1.13.10 4.2.7.2.686 [id number] [facility] 2020-08-03 15:30:00 2020-08-03 15:30:00 Outpatient R AMOL VARMA [facility] [id number] [facility] 2020-08-03 09:30:00 2020-08-03 09:30:00 Outpatient R [facility] [id number] [facility] 2020-07-20 10:10:16 2020-07-20 11:02:38 Office Visit Amol Varma [facility] 1.840.114 350.1.13.10 4.2.7.2.686 [id number] [facility] 2020-07-20 09:15:00 2020-07-20 09:15:00 Outpatient R AMOL VARMA [facility] [id number] [facility] 2020-07-20 00:00:00 2020-07-20 00:00:00 Orders Only Doctor Unassigned, [place] [facility] 1.284.114 350.1.13.10 4.2.7.2.686 [id number] [facility] 2020-05-02 14:20:00 2020-05-02 14:20:00 Outpatient R ROXANA BORREGO [facility] [id number] [facility] 2020-05-02 10:03:49 2020-05-02 10:23:49 Laboratory Only Lab, [facility] Fam Pascual Borrego [facility] Office [facility] 1.84.114 350.1.13.10 4.2.7.2.686 [id number] [facility] 2020-05-01 00:00:00 2020-05-01 00:00:00 Telephone LyonsValentín juarez [facility] 1.84.114 350.1.13.10 4.2.7.2.686 [id number] [facility] 2020-04-15 16:20:00 2020-04-15 16:20:00 Outpatient Jeremiah BORREGO [facility] [id number] [facility] 2020-04-15 15:25:01 2020-04-15 15:45:01 Laboratory Only Lab, [facility] 1.840.114 350.1.13.10 4.2.7.2.686 [id number] [facility] Results Test Description Test Time Test Comments Results Result Co mments Source [facility] [id number] 18:31:00* Test Item Value Reference Range Interpretation Comme nts POCT PREG (test code = 1605) Negative On board controls acceptable with C Line (test code = 3574) Yes POCT PREG LOT # (test code = 3575) POCT PREG TEST DATE ( test code = 3576) [facility] [id number] 14:17:00* Test Item Value Reference Range Interpretation Comme nts POCT PREG (test code = 1605) Negative On board controls acceptable with C Line (test code = 3574) Yes POCT PREG LOT # (test code = 3575) POCT PREG TEST DATE ( test code = 3576) [facility] [id number] 13:25:00* Test Item Value Reference Range Interpretation Comme nts POCT PREG (test code = 1605) negative On board controls acceptable with C Line (test code = 3574) present POCT PREG LOT # (test code = 3575) [id number] POCT PREG TEST DATE ( test code = 3576) Lab Interpretation (test cod e = [id number]) [id number] 15:42:00* Test Item Value Reference Range Interpretation Comme nts POCT PREG (test code = 1605) Negative On board controls acceptable with C Line (test code = 3574) Yes POCT PREG LOT # (test code = 3575) POCT PREG TEST DATE ( test code = 3576) [facility]
[2023-10-16] MEDS ORDERED: NA CHLORIDE 0.9% 1,000 ML ONE (13:54)
--- NOTE | 2023-10-16 14:29 | ER ---
Nurse's Notes [facility] Name: Betzaida Ramires Age: 18 yrs Sex: Female : 2005 Arrival Date: 10/16/2023 Time: 12:12 Bed IW1 Private MD: Diagnosis: Presentation: 10/15 12:42 Chief complaint: Patient states: Pelvic pain on/off for 2-3 months. Denies vaginal nj1 bleeding. Denies vomiting/diarrhea, slightly nauseous. States pain is worse when she "stretches and/or cough". Coronavirus screen: Vaccine status: Patient reports receiving the 2nd dose of the covid vaccine. Ebola Screen: Patient denies travel to an Ebola-affected area in the 21 days before illness onset. Initial Sepsis Screen: Does the patient meet any 2 criteria? No. Patient's initial sepsis screen is negative. Does the patient have a suspected source of infection? No. Patient's initial sepsis screen is negative. Risk Assessment: Do you want to hurt yourself or someone else? Patient reports no desire to harm self or others. Onset of symptoms was July 2023. 12:42 Method Of Arrival: Ambulatory [facility] 12:42 Acuity: BARRIE 3 nj1 Triage Assessment: 12:45 General: Appears in no apparent distress. comfortable, Behavior is calm, cooperative, nj1 appropriate for age. Pain: Complains of pain in pelvis Pain currently is 5 out of 10 on a pain scale. Historical: - Allergies: 12:44 No Known Allergies; nj1 - PMHx: 12:44 None; nj1 - PSHx: 12:44 None; nj1 - Immunization history:: Client reports receiving the 2nd dose of the Covid vaccine. - Social history:: Smoking status: Patient denies any tobacco usage or history of. Assessment: 14:00 Reassessment: pt not in room. rs5 Vital Signs: 12:42 BP 111 / 68; Pulse 62; Resp 16; Temp 98.2; Pulse Ox 99% ; Weight 58.97 kg; Height 5 ft. nj1 2 in. ; Pain 6/10; 12:42 Body Mass Index 23.78 (58.97 kg, 157.48 cm) [facility] 12:42 Pain Scale: Adult [facility] ED Course: 12:13 Patient arrived in ED. rg4 12:31 Solomon Solis MD is Attending Physician. [facility] 12:44 Triage completed. nj1 12:45 Arm band placed on right wrist. nj1 13:49 Patient's name was called from ER lobby. No response. nj1 13:52 Naseem Leonard, RN is Primary Nurse. rs5 14:00 Notified Charge Nurse of Pt not in waiting room when called for room assignment. nj1 14:20 Patient's name was called from ER lobby. No response. aa5 14:28 Patient's name was called from ER lobby. No response. Unable to locate patient. Will aa5 disposition as left without being seen by a provider. Administered Medications: No medications were administered Outcome: 14:28 Patient left the ED. aa5 Signatures: Solomon Solis MD MD cha Calderon, Audri, RN RN aa5 Stephie Black 4 Naseem Leonard, RN RN rs5 Delfina Borrero RN RN nj1 Corrections: (The following items were deleted from the chart) 12:45 12:42 Chief complaint: Patient states: Pelvic pain on/off for 2-3 months. Denies nj1 vaginal bleeding. Denies vomiting/diarrhea, slightly nauseous. nj1
[2023-10-16 14:53] VITALS: BP 111/68; TEMP 98.2; O2SAT 99
== END 2023-10-16 14:28 | disposition left against medical advice (07) ==
LOC: ER 12:12
DX: Z53.21 Procedure and treatment not carried out due to patient leaving prior to being seen by health care provider (principal)
CPT/HCPCS: 99281; J7030

== ENCOUNTER 2024-08-22 10:47 | Emergency (ER) | payer SELFPAY ==
--- OUTSIDE RECORDS SUMMARY | 2024-08-22 10:51 | XMS REPORT | Continuity of Care Document ---
Author Name Unknown Address [address] [place] [address] [facility] Address [address] [place] [address] Care Team Providers Care Safety Tech Name Role Phone SHAILA IZAGUIRRE Primary Care Physician Unav ailLÁZARO Keith Attending Clinician Unavailable SHAILA IZAGUIRRE Attending Clinician Unavail able [facility], [facility] Unava ilable Juni Lázaro BLANCHARD Attending Clinician [phone] Provider, Maribel Temp Attending Clinician Violet vailaZaida Mcginnis CNM Attending Clinician [phone] ZAIDA QUINTERO Attending Clinician Unavaila ble [facility], [facility] Attending Clinician Unava ilable Shaila Silver Attending Clinician + Doctor Unassigned, [place] Attending Clinician U SARAH Figueroa Attending Clinician Unavailab Sarah Falk DO Attending Clinician [phone] AMOL VARMA Attending Clinician Unavailab Leila Chavarria Attending Clinician +[phone] Amol Carmichael Attending Clinician + [phone] Ruthann Nichols RN Attending Clinician UnavailROXANA Vogt Attending Clinician Unavailable Only, Ang Db Ha Attending Clinician UnavailRoxana John Attending Clinician [phone] Valentín Lyons DO Attending Clinician [phone] Lab, Adc Fam Pob I Attending Clinician Unavailab le Payers Payer Name Policy Type Policy Number Effective Date Expirati on Date Source SUPERIOR HEBERT [id number] 2018 00:00:00 [facility] [id number] 2023 00:00:00 [place] [id number] 2021 00:00:00 Problems Condition Name Condition Details Condition Category Status Onset Date Resolution Date Last Treatment Date Treating Clinician Comments Source Other general counseling and advice for contracept joshua management Other general counseling and advice for contracept joshua management Disease Active 07-23 00:00: 00 [facility] Screening examinatio n for STD (sexually transmitte d disease) Screening examinatio n for STD (sexually transmitte d disease) Disease Active 07-20 00:00: 00 [facility] Need for HPV vaccinatio n Need for HPV vaccinatio n Disease Active 07-20 00:00: 00 [facility] Allergies, Adverse Reactions, Alerts Allergy Name Allergy Type Status Severity Reaction(s) Onset Date Inactive Date Treating Clinician Comments Source NO KNOWN ALLERGIE S Drug Class Active [facility] Social History Social Habit Start Date Stop Date Quantity Comments Source [facility] History of Social function 2024-03-03 00:00:00 2024-03-03 00:00:00 [facility] Alcoholic beverage intake 2024-03-03 00:00:00 2024-03-03 00:00:00 Lifetime non-drinker (finding) [facility] Alcohol intake 2023-04-04 00:00:00 2023-04-04 00:00:00 Lifetime non-drinker (finding) [facility] Tobacco use and exposure 2022-10-15 00:00:00 2022-10-15 00:00:00 Smokeless tobacco non-user [facility] Exposure to SARS-CoV-2 (event) 2022-07-13 00:00:00 2022-07-23 09:12:00 Not sure [facility] Sex assigned at 2003 00:00:00 2005 00:00:00 [facility] Smoking Status Start Date Stop Date Source Never smoked tobacco [facility] Medications Ordered Medication Name Filled Medication Name Start Date Stop Date Current Medication? Ordering Clinician Indication Dosage Frequency Signature (SIG) Comments Components Source medroxyPROG ESTERone (DEPO-PROVE RA) syringe 150 mg 12-01 20:45: 00 01-25 20:44 :00 No [id number] 150mg 150 mg, Intramuscu lar, [id number], 5 doses, First dose on Fri12/02/23 at 1545, Last dose on Fri11/02/24 at 1545, Routine [facility] medroxyPROG ESTERone (DEPO-PROVE RA) 150 mg/mL syringe 09-08 00:00: 00 12-01 00:00 :00 No [id number] 150mg 1 mL by Intramuscu lar route every 3 (three) months. [facility] medroxyPROG ESTERone (DEPO-PROVE RA) syringe 150 mg 10-15 20:15: 00 09-08 18:26 :08 No [id number] 150mg 150 mg, Intramuscu lar, [id number], 4 doses, First dose on Fri10/15/22 at 1515, Last dose on Fri06/24/23 at 1515, Routine [facility] medroxyPROG ESTERone (DEPO-PROVE RA) syringe 150 mg 2021-04 14:45: 00 04-30 14:48 :00 No [id number] 150mg 150 mg, Intramuscu lar, [id number], 2 doses, First dose on Fri02/05/22 at 0945, Last dose on Fri04/30/22 at 0945, Routine [facility] medroxyPROG ESTERone (DEPO-PROVE RA) injection 150 mg 07-23 16:00: 00 06-24 16:44 :00 No [id number] 150mg 150 mg, Intramuscu lar, [id number], 4 doses, First dose on Fri07/23/21 at 1100, Last dose on Fri04/01/22 at 1100, Routine [facility] medroxyPROG ESTERone (DEPO-PROVE RA) injection 150 mg 2020-04 13:45: 00 01-08 13:44 :00 No [id number] 150mg [facility] acute hospital Immunizations Ordered Immunization Name Filled Immunization Name Date Status Comments Source HPV 2021-01-22 00:00:00 Completed [facility] HPV 2021-01-22 00:00:00 Completed [facility] HPV 2021-01-22 00:00:00 Completed [facility] HPV 2021-01-22 00:00:00 Completed [facility] HPV 2021-01-22 00:00:00 Completed [facility] HPV 2021-01-22 00:00:00 Completed [facility] HPV 2021-01-22 00:00:00 Completed [facility] HPV 2021-01-22 00:00:00 Completed [facility] HPV 2021-01-22 00:00:00 Completed [facility] HPV 2021-01-22 00:00:00 Completed [facility] HPV 2021-01-22 00:00:00 Completed [facility] HPV 2021-01-22 00:00:00 Completed SARS-COV-2 COVID-19 PFIZER VACCINE 2021-01-19 00:00:00 Completed [facility] SARS-COV-2 COVID-19 PFIZER VACCINE 2021-01-19 00:00:00 Completed [facility] SARS-COV-2 COVID-19 PFIZER VACCINE 2021-01-19 00:00:00 Completed [facility] SARS-COV-2 COVID-19 PFIZER VACCINE 2021-01-19 00:00:00 Completed [facility] SARS-COV-2 COVID-19 PFIZER VACCINE 2021-01-19 00:00:00 Completed SARS-COV-2 COVID-19 PFIZER VACCINE 2020-12-29 00:00:00 Completed [facility] SARS-COV-2 COVID-19 PFIZER VACCINE 2020-12-29 00:00:00 Completed [facility] SARS-COV-2 COVID-19 PFIZER VACCINE 2020-12-29 00:00:00 Completed [facility] SARS-COV-2 COVID-19 PFIZER VACCINE 2020-12-29 00:00:00 Completed [facility] SARS-COV-2 COVID-19 PFIZER VACCINE 2020-12-29 00:00:00 Completed HPV9 2020-09-20 00:00:00 Completed [facility] HPV9 2020-09-20 00:00:00 Completed [facility] HPV9 2020-09-20 00:00:00 Completed [facility] HPV9 2020-09-20 00:00:00 Completed [facility] HPV9 2020-09-20 00:00:00 Completed [facility] HPV9 2020-09-20 00:00:00 Completed [facility] HPV9 2020-09-20 00:00:00 Completed [facility] HPV9 2020-09-20 00:00:00 Completed [facility] HPV9 2020-09-20 00:00:00 Completed [facility] HPV9 2020-09-20 00:00:00 Completed [facility] HPV9 2020-09-20 00:00:00 Completed [facility] HPV9 2020-09-20 00:00:00 Completed [facility] HPV9 2020-07-20 00:00:00 Completed [facility] HPV9 2020-07-20 00:00:00 Completed [facility] HPV9 2020-07-20 00:00:00 Completed [facility] HPV9 2020-07-20 00:00:00 Completed [facility] HPV9 2020-07-20 00:00:00 Completed [facility] HPV9 2020-07-20 00:00:00 Completed [facility] HPV9 2020-07-20 00:00:00 Completed [facility] HPV9 2020-07-20 00:00:00 Completed [facility] HPV9 2020-07-20 00:00:00 Completed [facility] HPV9 2020-07-20 00:00:00 Completed [facility] HPV9 2020-07-20 00:00:00 Completed [facility] HPV9 2020-07-20 00:00:00 Completed [facility] TDAP 2014-06-16 00:00:00 Completed [facility] TDAP 2014-06-16 00:00:00 Completed [facility] TDAP 2014-06-16 00:00:00 Completed [facility] TDAP 2014-06-16 00:00:00 Completed [facility] TDAP 2014-06-16 00:00:00 Completed Varicella (varivax)(chicken pox) 2009-09-06 00:00:00 Completed [facility] Varicella (varivax)(chicken pox) 2009-09-06 00:00:00 Completed [facility] Varicella (varivax)(chicken pox) 2009-09-06 00:00:00 Completed [facility] Varicella (varivax)(chicken pox) 2009-09-06 00:00:00 Completed [facility] Varicella (varivax)(chicken pox) 2009-09-06 00:00:00 Completed DTaP, Unspecified Formulation 2008-08-24 00:00:00 Completed [facility] IPV 2008-08-24 00:00:00 Completed [facility] DTaP, Unspecified Formulation 2008-08-24 00:00:00 Completed [facility] IPV 2008-08-24 00:00:00 Completed [facility] DTaP, Unspecified Formulation 2008-08-24 00:00:00 Completed [facility] IPV 2008-08-24 00:00:00 Completed [facility] DTaP, Unspecified Formulation 2008-08-24 00:00:00 Completed [facility] IPV 2008-08-24 00:00:00 Completed [facility] DTaP, Unspecified Formulation 2008-08-24 00:00:00 Completed IPV 2008-08-24 00:00:00 Completed Pediarix (dtap/hep B/ipv) 2006-07-21 00:00:00 Completed [facility] HEPATITIS A 2006-07-21 00:00:00 Completed [facility] HIB 4 Dose Schedule 2006-07-21 00:00:00 Completed [facility] Proquad (MMR/VARICELLA) 2006-07-21 00:00:00 Completed [facility] Pediarix (dtap/hep B/ipv) 2006-07-21 00:00:00 Completed [facility] HEPATITIS A 2006-07-21 00:00:00 Completed [facility] HIB 4 Dose Schedule 2006-07-21 00:00:00 Completed [facility] Proquad (MMR/VARICELLA) 2006-07-21 00:00:00 Completed [facility] Pediarix (dtap/hep B/ipv) 2006-07-21 00:00:00 Completed [facility] HEPATITIS A 2006-07-21 00:00:00 Completed [facility] HIB 4 Dose Schedule 2006-07-21 00:00:00 Completed [facility] Proquad (MMR/VARICELLA) 2006-07-21 00:00:00 Completed [facility] Pediarix (dtap/hep B/ipv) 2006-07-21 00:00:00 Completed [facility] HEPATITIS A 2006-07-21 00:00:00 Completed [facility] HIB 4 Dose Schedule 2006-07-21 00:00:00 Completed [facility] Proquad (MMR/VARICELLA) 2006-07-21 00:00:00 Completed [facility] Pediarix (dtap/hep B/ipv) 2006-07-21 00:00:00 Completed HEPATITIS A 2006-07-21 00:00:00 Completed HIB 4 Dose Schedule 2006-07-21 00:00:00 Completed Proquad (MMR/VARICELLA) 2006-07-21 00:00:00 Completed HEPATITIS A 2005-04-23 00:00:00 Completed [facility] MMR 2005-04-23 00:00:00 Completed [facility] Varicella (varivax)(chicken pox) 2005-04-23 00:00:00 Completed [facility] HEPATITIS A 2005-04-23 00:00:00 Completed [facility] MMR 2005-04-23 00:00:00 Completed [facility] Varicella (varivax)(chicken pox) 2005-04-23 00:00:00 Completed [facility] HEPATITIS A 2005-04-23 00:00:00 Completed [facility] MMR 2005-04-23 00:00:00 Completed [facility] Varicella (varivax)(chicken pox) 2005-04-23 00:00:00 Completed [facility] HEPATITIS A 2005-04-23 00:00:00 Completed [facility] MMR 2005-04-23 00:00:00 Completed [facility] Varicella (varivax)(chicken pox) 2005-04-23 00:00:00 Completed [facility] HEPATITIS A 2005-04-23 00:00:00 Completed MMR 2005-04-23 00:00:00 Completed Varicella (varivax)(chicken pox) 2005-04-23 00:00:00 Completed Pediarix (dtap/hep B/ipv) 2005-03-26 00:00:00 Completed [facility] HIB 3 Dose Schedule 2005-03-26 00:00:00 Completed [facility] Pneumococcal 7 Conjugate, PCV7 (Prevnar7) 2005-03-26 00:00:00 Completed [facility] Pediarix (dtap/hep B/ipv) 2005-03-26 00:00:00 Completed [facility] HIB 3 Dose Schedule 2005-03-26 00:00:00 Completed [facility] Pneumococcal 7 Conjugate, PCV7 (Prevnar7) 2005-03-26 00:00:00 Completed [facility] Pediarix (dtap/hep B/ipv) 2005-03-26 00:00:00 Completed [facility] HIB 3 Dose Schedule 2005-03-26 00:00:00 Completed [facility] Pneumococcal 7 Conjugate, PCV7 (Prevnar7) 2005-03-26 00:00:00 Completed [facility] Pediarix (dtap/hep B/ipv) 2005-03-26 00:00:00 Completed [facility] HIB 3 Dose Schedule 2005-03-26 00:00:00 Completed [facility] Pneumococcal 7 Conjugate, PCV7 (Prevnar7) 2005-03-26 00:00:00 Completed [facility] Pediarix (dtap/hep B/ipv) 2005-03-26 00:00:00 Completed HIB 3 Dose Schedule 2005-03-26 00:00:00 Completed Pneumococcal 7 Conjugate, PCV7 (Prevnar7) 2005-03-26 00:00:00 Completed Pediarix (dtap/hep B/ipv) 2003 00:00:00 Completed [facility] HIB 4 Dose Schedule 2003 00:00:00 Completed [facility] Pneumococcal 7 Conjugate, PCV7 (Prevnar7) 2003 00:00:00 Completed [facility] Pediarix (dtap/hep B/ipv) 2003 00:00:00 Completed [facility] HIB 4 Dose Schedule 2003 00:00:00 Completed [facility] Pneumococcal 7 Conjugate, PCV7 (Prevnar7) 2003 00:00:00 Completed [facility] Pediarix (dtap/hep B/ipv) 2003 00:00:00 Completed [facility] HIB 4 Dose Schedule 2003 00:00:00 Completed [facility] Pneumococcal 7 Conjugate, PCV7 (Prevnar7) 2003 00:00:00 Completed [facility] Pediarix (dtap/hep B/ipv) 2003 00:00:00 Completed [facility] HIB 4 Dose Schedule 2003 00:00:00 Completed [facility] Pneumococcal 7 Conjugate, PCV7 (Prevnar7) 2003 00:00:00 Completed [facility] Pediarix (dtap/hep B/ipv) 2003 00:00:00 Completed HIB 4 Dose Schedule 2003 00:00:00 Completed Pneumococcal 7 Conjugate, PCV7 (Prevnar7) 2003 00:00:00 Completed Hep B, Adol or Pedi Dosage 2003 00:00:00 Completed [facility] Hep B, Adol or Pedi Dosage 2003 00:00:00 Completed [facility] Hep B, Adol or Pedi Dosage 2003 00:00:00 Completed [facility] Hep B, Adol or Pedi Dosage 2003 00:00:00 Completed [facility] Hep B, Adol or Pedi Dosage 2003 00:00:00 Completed HPV9 Unknown Completed [facility] HPV Unknown Completed [facility] SARS-COV-2 COVID-19 PFIZER VACCINE Unknown Completed [facility] DTaP, Unspecified Formulation Unknown Completed [facility] Pediarix (dtap/hep B/ipv) Unknown Completed [facility] HEPATITIS A Unknown Completed [facility] Hep B, Adol or Pedi Dosage Unknown Completed [facility] HIB 3 Dose Schedule Unknown Completed [facility] HIB 4 Dose Schedule Unknown Completed [facility] MMR Unknown Completed [facility] Proquad (MMR/VARICELLA) Unknown Completed [facility] Pneumococcal 7 Conjugate, PCV7 (Prevnar7) Unknown Completed [facility] IPV Unknown Completed [facility] TDAP Unknown Completed [facility] Varicella (varivax)(chicken pox) Unknown Completed [facility] HPV9 Unknown Completed [facility] HPV Unknown Completed [facility] SARS-COV-2 COVID-19 PFIZER VACCINE Unknown Completed [facility] DTaP, Unspecified Formulation Unknown Completed [facility] Pediarix (dtap/hep B/ipv) Unknown Completed [facility] HEPATITIS A Unknown Completed [facility] Hep B, Adol or Pedi Dosage Unknown Completed [facility] HIB 3 Dose Schedule Unknown Completed [facility] HIB 4 Dose Schedule Unknown Completed [facility] MMR Unknown Completed [facility] Proquad (MMR/VARICELLA) Unknown Completed [facility] Pneumococcal 7 Conjugate, PCV7 (Prevnar7) Unknown Completed [facility] IPV Unknown Completed [facility] TDAP Unknown Completed [facility] Varicella (varivax)(chicken pox) Unknown Completed [facility] HPV9 Unknown Completed [facility] HPV Unknown Completed [facility] SARS-COV-2 COVID-19 PFIZER VACCINE Unknown Completed [facility] DTaP, Unspecified Formulation Unknown Completed [facility] Pediarix (dtap/hep B/ipv) Unknown Completed [facility] HEPATITIS A Unknown Completed [facility] Hep B, Adol or Pedi Dosage Unknown Completed [facility] HIB 3 Dose Schedule Unknown Completed [facility] HIB 4 Dose Schedule Unknown Completed [facility] MMR Unknown Completed [facility] Proquad (MMR/VARICELLA) Unknown Completed [facility] Pneumococcal 7 Conjugate, PCV7 (Prevnar7) Unknown Completed [facility] IPV Unknown Completed [facility] TDAP Unknown Completed [facility] Varicella (varivax)(chicken pox) Unknown Completed [facility] Vital Signs Vital Name Observation Time Observation Value Comments S ource Systolic blood pressure 2024-03-03 19:10:00 117 mm[Hg] [facility] Diastolic blood pressure 2024-03-03 19:10:00 59 mm[Hg] [facility] Heart rate 2024-03-03 19:10:00 65 /min [facility] Body temperature 2024-03-03 19:10:00 36.78 Lauren [facility] Respiratory rate 2024-03-03 19:10:00 17 /min [facility] Body height 2024-03-03 19:10:00 157.5 cm [facility] Body weight 2024-03-03 19:10:00 59.058 kg [facility] BMI 2024-03-03 19:10:00 23.81 kg/m2 [facility] Systolic blood pressure 2023-12-02 20:04:00 113 mm[Hg] [facility] Diastolic blood pressure 2023-12-02 20:04:00 61 mm[Hg] [facility] Heart rate 2023-12-02 20:04:00 67 /min [facility] Body temperature 2023-12-02 20:04:00 36.5 Lauren [facility] Respiratory rate 2023-12-02 20:04:00 17 /min [facility] Body height 2023-12-02 20:04:00 157.5 cm [facility] Body weight 2023-12-02 20:04:00 61.1 kg [facility] BMI 2023-12-02 20:04:00 24.64 kg/m2 [facility] Systolic blood pressure 2023-09-09 18:06:00 99 mm[Hg] [facility] Diastolic blood pressure 2023-09-09 18:06:00 54 mm[Hg] [facility] Heart rate 2023-09-09 18:06:00 58 /min [facility] Body temperature 2023-09-09 18:06:00 36.67 Lauren [facility] Respiratory rate 2023-09-09 18:06:00 18 /min [facility] Body height 2023-09-09 18:06:00 157.5 cm [facility] Body weight 2023-09-09 18:06:00 60.963 kg [facility] BMI 2023-09-09 18:06:00 24.58 kg/m2 [facility] Systolic blood pressure 2023-04-04 19:39:00 112 mm[Hg] [facility] Diastolic blood pressure 2023-04-04 19:39:00 63 mm[Hg] [facility] Heart rate 2023-04-04 19:39:00 56 /min [facility] Body temperature 2023-04-04 19:39:00 36.89 Lauren [facility] Respiratory rate 2023-04-04 19:39:00 18 /min [facility] Body height 2023-04-04 19:39:00 157.5 cm [facility] Body weight 2023-04-04 19:39:00 57.561 kg [facility] BMI 2023-04-04 19:39:00 23.21 kg/m2 [facility] Systolic blood pressure 2023-01-07 19:04:00 115 mm[Hg] [facility] Diastolic blood pressure 2023-01-07 19:04:00 63 mm[Hg] [facility] Heart rate 2023-01-07 19:04:00 65 /min [facility] Body temperature 2023-01-07 19:04:00 36.39 Lauren [facility] Respiratory rate 2023-01-07 19:04:00 18 /min [facility] Body height 2023-01-07 19:04:00 157.5 cm [facility] Body weight 2023-01-07 19:04:00 57.862 kg [facility] BMI 2023-01-07 19:04:00 23.33 kg/m2 [facility] Systolic blood pressure 2022-10-15 19:02:00 108 mm[Hg] [facility] Diastolic blood pressure 2022-10-15 19:02:00 64 mm[Hg] [facility] Heart rate 2022-10-15 19:02:00 80 /min [facility] Body temperature 2022-10-15 19:02:00 36.67 Lauren [facility] Respiratory rate 2022-10-15 19:02:00 18 /min [facility] Body height 2022-10-15 19:02:00 157.5 cm [facility] Body weight 2022-10-15 19:02:00 57.743 kg [facility] BMI 2022-10-15 19:02:00 23.28 kg/m2 [facility] Systolic blood pressure 2022-07-23 14:24:00 103 mm[Hg] [facility] Diastolic blood pressure 2022-07-23 14:24:00 64 mm[Hg] [facility] Heart rate 2022-07-23 14:24:00 63 /min [facility] Body temperature 2022-07-23 14:24:00 36.5 Lauren [facility] Respiratory rate 2022-07-23 14:24:00 16 /min [facility] Body height 2022-07-23 14:24:00 157.5 cm [facility] Body weight 2022-07-23 14:24:00 58.469 kg [facility] BMI 2022-07-23 14:24:00 23.58 kg/m2 [facility] Systolic blood pressure 2022-04-30 14:39:00 119 mm[Hg] [facility] Diastolic blood pressure 2022-04-30 14:39:00 56 mm[Hg] [facility] Heart rate 2022-04-30 14:39:00 61 /min [facility] Body temperature 2022-04-30 14:39:00 36.72 Lauren [facility] Respiratory rate 2022-04-30 14:39:00 18 /min [facility] Body height 2022-04-30 14:39:00 157.5 cm [facility] Body weight 2022-04-30 14:39:00 56.359 kg [facility] BMI 2022-04-30 14:39:00 22.73 kg/m2 [facility] Systolic blood pressure 2022-02-05 13:50:00 108 mm[Hg] [facility] Diastolic blood pressure 2022-02-05 13:50:00 51 mm[Hg] [facility] Heart rate 2022-02-05 13:50:00 62 /min [facility] Body temperature 2022-02-05 13:50:00 36.61 Lauren [facility] Respiratory rate 2022-02-05 13:50:00 18 /min [facility] Body height 2022-02-05 13:50:00 157.5 cm [facility] Body weight 2022-02-05 13:50:00 57.017 kg [facility] BMI 2022-02-05 13:50:00 22.99 kg/m2 [facility] Body mass index (BMI) [Percentile] Per age and sex 2022-02-05 13:50:00 66.08 % [facility] Systolic blood pressure 2022-01-22 14:14:00 108 mm[Hg] [facility] Diastolic blood pressure 2022-01-22 14:14:00 65 mm[Hg] [facility] Heart rate 2022-01-22 14:14:00 71 /min [facility] Body temperature 2022-01-22 14:14:00 36.44 Lauren [facility] Respiratory rate 2022-01-22 14:14:00 18 /min [facility] Body height 2022-01-22 14:14:00 157.5 cm [facility] Body weight 2022-01-22 14:14:00 56.728 kg [facility] BMI 2022-01-22 14:14:00 22.87 kg/m2 [facility] Body mass index (BMI) [Percentile] Per age and sex 2022-01-22 14:14:00 65.07 % [facility] Systolic blood pressure 2021-09-13 13:20:00 115 mm[Hg] [facility] Diastolic blood pressure 2021-09-13 13:20:00 48 mm[Hg] [facility] Heart rate 2021-09-13 13:20:00 59 /min [facility] Body temperature 2021-09-13 13:20:00 37.28 Lauren [facility] Respiratory rate 2021-09-13 13:20:00 18 /min [facility] Body weight 2021-09-13 13:20:00 57.607 kg [facility] Oxygen saturation in Arterial blood by Pulse oximetry 2021-09-13 13:20:00 99 /min [facility] Systolic blood pressure 2021-07-23 15:21:00 110 mm[Hg] [facility] Diastolic blood pressure 2021-07-23 15:21:00 54 mm[Hg] [facility] Heart rate 2021-07-23 15:21:00 72 /min [facility] Body temperature 2021-07-23 15:21:00 36.28 Lauren [facility] Respiratory rate 2021-07-23 15:21:00 20 /min [facility] Body height 2021-07-23 15:21:00 157.5 cm [facility] Body weight 2021-07-23 15:21:00 57.777 kg [facility] BMI 2021-07-23 15:21:00 23.30 kg/m2 [facility] Body mass index (BMI) [Percentile] Per age and sex 2021-07-23 15:21:00 70.26 % [facility] Procedures Procedure Date / Time Performed Performing Clinicia n Source POCT TEST 2023-09-09 18:31:00 Lázaro Alfredo [facility] ASSIGNMENT OF BENEFITS 2022-10-15 18:41:55 Docto r Unassigned, [place] [facility] POCT TEST 2022-01-22 14:17:00 Rommel Izaguirre [facility] POCT TEST 2021-09-13 13:25:00 Karen Balbuena ra [facility] URINALYSIS 2021-09-13 13:24:00 [facility]REATMENT 2021-09-13 13:16:37 Doctor Unassigned, [place] [facility] GC & CHLAMYDIA AMPLIFIED ASSAY 2021-07-23 15:53:00 Shaila Izaguirre [facility] POCT TEST 2021-07-23 15:42:00 Rommel Izaguirre [facility] Encounters Start Date/Time End Date/Time Encounter Type Admission Type Attending [facility] Facility Care Department Encounter ID Source 2021-02-25 13:02:37 Emergency [facility] [id number] [facility] 2024-06-15 11:00:00 2024-06-15 11:00:00 Outpatient LÁZARO LOPEZ [facility] [id number] [facility] 2024-05-26 13:30:00 2024-05-26 13:30:00 Outpatient Jeremiah [facility] [id number] [facility] 2024-03-03 13:30:00 2024-03-03 13:30:00 Nurse Visit Visit, [facility] Nurse Lázaro Alfredo Visit, Maribel Nurse [facility] & [facility]ILD [facility] 1.2.840.114 350.1.13.10 4.2.7.2.686 [id number] [facility] 2024-03-03 13:30:00 2024-03-03 13:19:33 Outpatient LÁZARO LOPEZ [facility] [id number] [facility] 2023-12-02 15:00:00 2023-12-02 15:50:01 Outpatient LÁZARO LOPEZ [facility] [id number] [facility] 2023-12-02 15:00:00 2023-12-02 15:50:01 Office Visit Lázaro Alfredo [facility] MATERNAL & CHILD [facility] 1.2.840.114 350.1.13.10 4.2.7.2.686 [id number] [facility] 2023-12-02 13:30:00 2023-12-02 13:30:00 Outpatient R [facility] [id number] [facility] 2023-09-09 13:15:00 2023-09-09 13:36:19 Outpatient R LÁZARO ALFREDO [facility] [id number] [facility] 2023-09-09 13:15:00 2023-09-09 13:36:19 Office Visit Provider, Zaida Mariscal [facility] & CHILD [facility] 1..840.114 350.1.13.10 4.2.7.2.686 [id number] [facility] 2023-08-21 13:18:21 2023-08-21 13:18:21 Outpatient [facility] [id number] Michael F Akbar 2023-06-27 10:30:00 2023-06-27 10:30:00 Outpatient R [facility] [id number] [facility] 2023-04-04 13:00:00 2023-04-04 13:00:00 Nurse Visit Visit, Maribel Nurse Shaila Izaguirre [facility] & CHILD [facility] 1.2.840.114 350.1.13.10 4.2.7.2.686 [id number] 107 [id number] [facility] 2023-04-04 13:00:00 2023-04-04 12:59:48 Outpatient SHAILA IRIZARRY [facility] [id number] [facility] 2023-01-07 13:00:00 2023-01-07 14:10:36 Outpatient R SHAILA IZAGUIRRE [facility] [id number] [facility] 2023-01-07 13:00:00 2023-01-07 14:10:36 Nurse Visit Visit, Shaila Reeves [facility] & CHILD [facility] 1.84.114 350.1.13.10 4.2.7.2.686 [id number] [facility] 2022-10-15 13:30:00 2022-10-15 15:08:26 Outpatient R SHAILA IZAGUIRRE [facility] [id number] [facility] 2022-10-15 13:30:00 2022-10-15 15:08:26 Office Visit Shaila Izaguirre [facility] CHILD [facility] 1.84.114 350.1.13.10 4.2.7.2.686 [id number] 107 [id number] [facility] 2022-10-15 00:00:00 2022-10-15 00:00:00 Orders Only Doctor Unassigned, [place] [facility] 1..114 350.1.13.10 4.2.7.2.686 [id number] [facility] 2022-07-23 09:30:00 2022-07-23 09:34:03 Outpatient SHAILA IRIZARRY [facility] [id number] [facility] 2022-07-23 09:30:00 2022-07-23 09:34:03 Nurse Visit Visit, Shaila Reeves [facility] 1..114 350.1.13.10 4.2.7.2.686 [id number] 107 [id number] [facility] 2022-04-30 08:30:00 2022-04-30 08:48:20 Outpatient SHAILA IRIZARRY [facility] [id number] [facility] 2022-04-30 08:30:00 2022-04-30 08:48:20 Nurse Visit Visit, Shaila Reeves [facility] & CHILD [facility] 1..840.114 350.1.13.10 4.2.7.2.686 [id number] [facility] 2022-02-05 08:30:00 2022-02-05 08:54:05 Nurse Visit Visit, Shaila Reeves [facility] CHILD [facility] ..840.114 350.1.13.10 4.2.7.2.686 [id number] [facility] 2022-02-05 08:30:00 2022-02-05 08:30:00 Outpatient SHAILA IRIZARRY [facility] [id number] [facility] 2022-01-22 09:00:00 2022-01-22 09:31:08 Nurse Visit Visit, Shaila Reeves [facility] .840.114 350.1.13.10 4.2.7.2.686 [id number] [facility] 2022-01-22 09:00:00 2022-01-22 09:00:00 Outpatient SHAILA IRIZARRY [facility] [id number] [facility] 2022-01-22 00:00:00 2022-01-22 00:00:00 Letter (Out) Visit, Maribel Puckett [facility] 1..840.114 350.1.13.10 4.2.7.2.686 [id number] 107 [id number] [facility] 2021-10-15 09:00:00 2021-10-15 09:00:00 Outpatient R [facility] [id number] [facility] 2021-10-15 09:00:00 2021-10-15 09:00:00 Outpatient R SHAILA IZAGUIRRE [facility] [id number] [facility] 2021-09-13 08:23:00 2021-09-13 10:01:00 Emergency X SARAH BALBUENA [facility] ERT [id number] [facility] 2021-09-13 08:23:00 2021-09-13 10:01:00 Emergency Osorio Sarah Jean-Baptiste [facility] 1.2.840.114 350.1.13.10 4.2.7.2.686 [id number] [facility] 2021-09-12 00:00:00 2021-09-12 00:00:00 Telephone Shaila Izaguirre [facility] & CHILD [facility] 1.2.840.114 350.1.13.10 4.2.7.2.686 [id number] [facility] 2021-07-23 10:00:00 2021-07-23 10:54:38 Office Visit Shiala Izaguirre [facility] & CHILD [facility] 1.2.840.114 350.1.13.10 4.2.7.2.686 [id number] 107 [id number] [facility] 2021-07-23 10:00:00 2021-07-23 10:54:38 Outpatient R SHAILA IZAGUIRRE [facility] [id number] [facility] 2021-07-23 10:00:00 2021-07-23 10:00:00 Outpatient R SHAILA IZAGUIRRE [facility] [id number] [facility] 2021-07-23 10:00:00 2021-07-23 10:00:00 Outpatient R SHAILA IZAGUIRRE [facility] [id number] [facility] 2021-07-23 00:00:00 2021-07-23 00:00:00 Orders Only Doctor Unassigned, [place] [facility] 1.840.114 350.1.13.10 4.2.7.2.686 [id number] [facility] 2021-07-23 00:00:00 2021-07-23 00:00:00 Letter (Out) Shaila Izaguirre [facility] & CHILD [facility] 1.20.114 350.1.13.10 4.2.7.2.686 [id number] 107 [id number] [facility] 2021-07-05 10:00:00 2021-07-05 10:14:48 Outpatient R SHAILA IZAGUIRRE [facility] [id number] [facility] 2021-07-05 10:00:00 2021-07-05 10:14:48 [facility] CHILD [facility] 1..114 350.1.13.10 4.2.7.2.686 [id number] [facility] 2021-07-05 09:45:00 2021-07-05 10:00:00 Office Visit Shaila Izaguirre [facility] 1.84.114 350.1.13.10 4.2.7.2.686 [id number] [facility] 2021-07-05 09:45:00 2021-07-05 09:45:00 Outpatient R SHAILA IZAGUIRRE [facility] [id number] [facility] 2021-07-05 00:00:00 2021-07-05 00:00:00 Letter (Out) Shaila Izaguirre [facility] 1.84.114 350.1.13.10 4.2.7.2.686 [id number] 107 [id number] [facility] 2021-06-06 08:30:00 2021-06-06 08:30:00 Outpatient R AMOL VARMA [facility] [id number] [facility] 2021-05-01 08:30:00 2021-05-01 08:30:00 Outpatient R AMOL VARMA [facility] [id number] [facility] 2021-02-06 08:05:48 2021-02-06 08:33:13 Nurse Visit Visit, TheoRmp Leila Lopez [facility]ERNAL & CHILD [facility] 1..840.114 350.1.13.10 4.2.7.2.686 [id number] [facility] 2021-02-06 08:30:00 2021-02-06 08:30:00 Outpatient R LEILA BARRERA [facility] [id number] [facility] 2021-02-05 14:00:00 2021-02-05 14:00:00 Outpatient R [facility] [id number] [facility] 2021-01-22 14:06:34 2021-01-22 14:21:34 Nurse Visit Visit, TheoRmchp Amol Harper [facility] & CHILD [facility] 1..840.114 350.1.13.10 4.2.7.2.686 [id number] 107 [id number] [facility] 2021-01-22 14:00:00 2021-01-22 14:00:00 Outpatient R [facility] [id number] [facility] 2020-12-23 00:00:00 2020-12-23 00:00:00 Telephone Ruthann Nichols [facility] ..840.114 350.1.13.10 4.2.7.2.686 [id number] [facility] 2020-12-22 10:10:00 2020-12-22 10:10:00 Outpatient R ROXANA BORREGO [facility] [id number] [facility] 2020-12-22 09:58:55 2020-12-22 10:08:55 Laboratory Only Only, Gallo Db Test Roxana Borrego [facility] 1..840.114 350.1.13.10 4.2.7.2.686 [id number] [facility] 2020-10-04 10:00:00 2020-10-04 10:00:00 Outpatient R [facility] [id number] [facility] 2020-09-20 13:26:42 2020-09-20 13:56:43 Nurse Visit Visit, [facility] Nurse Amol Varma [facility] & CHILD [facility] 1..840.114 350.1.13.10 4.2.7.2.686 [id number] [facility] 2020-09-20 13:45:00 2020-09-20 13:45:00 Outpatient R [facility] [id number] [facility] 2020-09-20 08:30:00 2020-09-20 08:30:00 Outpatient R AMOL VARMA [facility] [id number] [facility] 2020-09-20 00:00:00 2020-09-20 00:00:00 Orders Only Doctor Unassigned, [place] [facility] 1.840.114 350.1.13.10 4.2.7.2.686 [id number] [facility] 2020-09-19 10:00:00 2020-09-19 10:00:00 Outpatient R [facility] [id number] [facility] 2020-08-10 08:20:00 2020-08-10 10:10:00 Emergency Valentín Lyons [facility] 1.840.114 350.1.13.10 4.2.7.2.686 [id number] [facility] 2020-08-10 00:00:00 2020-08-10 00:00:00 Orders Only Doctor Unassigned, [place] [facility] 1.2.840.114 350.1.13.10 4.2.7.2.686 [id number] [facility] 2020-08-03 15:30:00 2020-08-03 15:30:00 Outpatient R AMOL VARMA [facility] [id number] [facility] 2020-08-03 09:30:00 2020-08-03 09:30:00 Outpatient R [facility] [id number] [facility] 2020-07-20 10:10:16 2020-07-20 11:02:38 Office Visit Amol Varma [facility]ILD [facility] 1..840.114 350.1.13.10 4.2.7.2.686 [id number] [facility] 2020-07-20 09:15:00 2020-07-20 09:15:00 Outpatient R AMOL VARMA [facility] [id number] [facility] 2020-07-20 00:00:00 2020-07-20 00:00:00 Orders Only Doctor Unassigned, [place] [facility] 1..840.114 350.1.13.10 4.2.7.2.686 [id number] [facility] 2020-05-02 14:20:00 2020-05-02 14:20:00 Outpatient Jeremiah BORREGO ROXANA [facility] [id number] [facility] 2020-05-02 10:03:49 2020-05-02 10:23:49 Laboratory Only Lab, Adc Fam Pob I Elmo Roxana [facility] Office [facility] One 1.84114 350.1.13.10 4.2.7.2.686 [id number] [facility] 2020-05-01 00:00:00 2020-05-01 00:00:00 Telephone LyonsValentín juarez [facility] 1.84.114 350.1.13.10 4.2.7.2.686 [id number] [facility] 2020-04-15 16:20:00 2020-04-15 16:20:00 Outpatient R ELMO [facility] [id number] [facility] 2020-04-15 15:25:01 2020-04-15 15:45:01 Laboratory Only Lab, Adc Fam Pob Radha Borrego [facility] One 1.84.114 350.1.13.10 4.2.7.2.686 [id number] [facility] Results Test Description Test Time Test Comments Results Result Co mments Source [id number] 18:31:00* Test Item Value Reference Range Interpretation Comme nts POCT PREG (test code = 1605) Negative On board controls acceptable with C Line (test code = 3574) Yes POCT PREG LOT # (test code = 3575) POCT PREG TEST DATE ( test code = 3576) [id number] 14:17:00* Test Item Value Reference Range Interpretation Comme nts POCT PREG (test code = 1605) Negative On board controls acceptable with C Line (test code = 3574) Yes POCT PREG LOT # (test code = 3575) POCT PREG TEST DATE ( test code = 3576) [facility] [id number] 13:25:00* Test Item Value Reference Range Interpretation Comme nts POCT PREG (test code = 1605) negative On board controls acceptable with C Line (test code = 3574) present POCT PREG LOT # (test code = 3575) [id number] POCT PREG TEST DATE ( test code = 3576) Lab Interpretation (test cod e = 84493-1) Normal [facility] [id number] 15:42:00* Test Item Value Reference Range Interpretation Comme nts POCT PREG (test code = 1605) Negative On board controls acceptable with C Line (test code = 3574) Yes POCT PREG LOT # (test code = 3575) POCT PREG TEST DATE ( test code = 3576) [facility]
[2024-08-22 11:25] LABS: Specific Gravity 1.026 (1.005-1.030)
[2024-08-22 11:26] LABS: Specific Gravity 1.026 (1.005-1.030); Sqamous Epithelial <5 /HPF (None Seen); Urine Bacteria None Seen /HPF (<20); Urine Bilirubin NEGATIVE (Negative); Urine Blood 1+ (Negative); Urine Clarity Clear (Clear); Urine Color Light-Yellow (Yellow); Urine Culture Reflex Order NOT NEEDED; Urine Glucose NEGATIVE (Negative); Urine Ketones NEGATIVE (Negative); Urine Microscopic Reflex YN ORDER UMIC; Urine Mucus 2+ /HPF (None Seen); Urine Nitrite NEGATIVE (Negative); Urine Protein NEGATIVE (Negative); Urine RBC <5 /HPF (None Seen); Urine Urobilinogen 1+ (Normal); Urine WBC <5 /HPF (<5)
--- NOTE | 2024-08-22 11:46 | RAD REPORT ---
EXAMINATION: Transvaginal OB COMPARISON: None. HISTORY: ABD PAIN TECHNIQUE: Real-time ultrasound was performed through the pelvis. A transvaginal scan was performed t o better visualize the intrauterine contents and adnexa. FINDINGS: Uterus measures 7.4 x 4.4 x 4.2 cm. No IUP is confirmed. There is mild thickening of the endometrium measuring up to 12 mm. Both ovaries are normal in size, shape and echotexture with normal blood flow. No pelvic ascites. IMPRESSION: Mildly thickened endometrial stripe without evidence of IUP. In the setting of a positive hCG level, this would indicate of unknown location. Serial hCG level measurements and follow-up pelvic sonography in 7-10 days would be recommended.
[2024-08-22 11:48] LABS: Absolute Basophils 0.1 K/uL (0-0.5); Absolute Eosinophils 0.1 K/uL (0-0.5); Absolute Lymphocytes (CBC) 2.6 K/uL (0.7-4.9); Absolute Monocytes 0.7 K/uL (0.1-1.3); Absolute Neutrophil 4.9 K/uL (1.8-8.0); Basophils % 0.8 % (0-1.3); Hematocrit 40.2 % (36.0-45.0); Hemoglobin 14.2 g/dL (12.0-15.0); MCHC 35.3 g/dL (32.0-36.0); MCV 84.9 fL (80-100); MPV 8.8 fL (7.6-11.3); Monocytes % 8.5 % (3.3-12.3); Neutrophils % 58.7 % (41.7-73.7); Platelets 223 thou/uL (152-406); RBC Red Blood Cell Count 4.73 M/uL (3.86-4.86); Red Cell Distribution Width 13.6 % (12.1-15.2)
[2024-08-22 12:04] LABS: Anion Gap 7.8 mEq/L (5.0-15.0); Potassium 3.8 mEq/L (3.5-5.1)
--- NOTE | 2024-08-22 12:24 | ER ---
Nurse's Notes [facility] Name: Betzaida Ramires Age: 19 yrs Sex: Female : 2005 Arrival Date: 08/22/2024 Time: 10:47 Bed 11 Private MD: Diagnosis: Lower abdominal pain, unspecified;Less than 8 weeks gestation of Presentation: 08/22 10:54 Chief complaint: Patient states: positive UPT 2 days ago , started having RLQ cramping iw today. Coronavirus screen: At this time, the client does not indicate any symptoms associated with coronavirus-19. 10:54 Acuity: BARRIE 3 iw 10:55 Ebola Screen: No symptoms or risks identified at this time. Initial Sepsis Screen: Does iw the patient meet any 2 criteria? No. Patient's initial sepsis screen is negative. Does the patient have a suspected source of infection? No. Patient's initial sepsis screen is negative. Risk Assessment: Do you want to hurt yourself or someone else? Patient reports no desire to harm self or others. Onset of symptoms was August 22, 2024. 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 - Infectious Disease History:: Denies. - Social history:: Smoking status: Patient denies any tobacco usage or history of. Screenin:30 [facility] ED Fall Risk Assessment (Adult) History of falling in the last 3 months, ss including since admission No falls in past 3 months (0 pts) Confusion or Disorientation No (0 pts) Intoxicated or Sedated No (0 pts) Impaired Gait No (0 pts) Mobility Assist Device Used No (0 pt) Altered Elimination No (0 pt) Score/Fall Risk Level 0 - 2 = Low Risk Oriented to surroundings, Maintained a safe environment. Abuse screen: Denies threats or abuse. Denies injuries from another. Nutritional screening: No deficits noted. Tuberculosis screening: Never had TB. Assessment: 11:17 Reassessment: Pt in US at this time. ss 11:30 General: Appears in no apparent distress. comfortable, Behavior is calm, cooperative. ss Neuro: Level of Consciousness is awake, alert, obeys commands, Oriented to person, place, time, situation. Respiratory: Airway is patent Respiratory effort is even, unlabored, Respiratory pattern is regular, symmetrical. : Reports vaginal spotting. Derm: Skin is pink, warm \T\ dry. normal. Vital Signs: 10:55 BP 112 / 60; Pulse 59; Resp 16; Temp 98.7; Pulse Ox 99% on R/A; Weight 58.97 kg; Height iw 5 ft. 2 in. ; Pain 5/10; 10:55 Body Mass Index 23.78 (58.97 kg, 157.48 cm) iw 10:55 Pain Scale: Adult iw ED Course: 10:49 Patient arrived in ED. im 10:50 Tejal Buckner FNP-C is [facility]. kb 10:50 Solomon Solis MD is Attending Physician. kb 10:54 Triage completed. iw 11:30 US Transvaginal Ob In Process Unspecified. EDMS 11:30 Patient has correct armband on for positive identification. ss 11:39 Inserted saline lock: 22 gauge in right antecubital area, using aseptic technique. ss Blood collected. Flushed with 10 mL NS. 12:35 Zoila Larsen, RN is Primary Nurse. ss 12:35 No provider procedures requiring assistance completed. Patient did not have IV access ss during this emergency room visit. Administered Medications: No medications were administered Medication: 11:30 VIS not applicable for this client. ss Outcome: 12:24 Discharge ordered by MD. kb 12:35 Discharged to home ambulatory, ss 12:35 Condition: good 12:35 Discharge instructions given to patient, family, Instructed on discharge instructions, follow up and referral plans. Demonstrated understanding of instructions, follow-up care, 12:37 Patient left the ED. ss Signatures: Dispatcher [employer] EDMS Tejal Buckner FNP-C FNP-Ckb Williams, Irene RN RN iw Zoila Larsen, ALEXIA RN ss Greer Cary im Corrections: (The following items were deleted from the chart) 10:55 10:54 Chief complaint: Patient states: positive UPT 2 days ago , started having RLQ iw cramping yesterday iw
--- NOTE | 2024-08-22 12:24 | EDPHYS ---
Physician Documentation [facility] Name: Betzaida Ramires Age: 19 yrs Sex: Female : 2005 Arrival Date: 08/22/2024 Time: 10:47 Bed 11 Private MD: ED Physician Solomon Solis HPI: 08/22 12:21 This 19 yrs old Female presents to ER via Ambulatory with complaints of kb , Abdominal Pain. 12:21 Patient is a 19-year-old female who presents for right sided abdominal pain that kb started last night. States she took a positive test yesterday. G1, . LMP 06/30/24. Denies any vaginal bleeding or discharge.. 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 - Infectious Disease History:: Denies. - Social history:: Smoking status: Patient denies any tobacco usage or history of. ROS: 12:21 Constitutional: As per HPI kb Exam: 12:21 Constitutional: This is a well developed, well nourished patient who is awake, alert, kb and in no acute distress. Head/Face: Normocephalic, atraumatic. ENT: Moist Mucous membranes Cardiovascular: Regular rate Respiratory: Respirations even and unlabored. No increased work of breathing. Talking in full sentences Skin: Warm, dry with normal turgor. Normal color. MS/ Extremity: Pulses equal, no cyanosis. Neurovascular intact. Full, normal range of motion. Neuro: Awake and alert, GCS 15, oriented to person, place, time, and situation. 12:21 Abdomen/GI: Inspection: abdomen appears normal, Bowel sounds: normal, Palpation: soft, in all quadrants, mild abdominal tenderness, in the suprapubic area and right lower quadrant, Vital Signs: 10:55 BP 112 / 60; Pulse 59; Resp 16; Temp 98.7; Pulse Ox 99% on R/A; Weight 58.97 kg; Height iw 5 ft. 2 in. ; Pain 5/10; 10:55 Body Mass Index 23.78 (58.97 kg, 157.48 cm) iw 10:55 Pain Scale: Adult iw MDM: 10:50 Medical Screening Exam initiated kb 12:22 Differential diagnosis: , ectopic, threatened . Data reviewed: vital kb signs, nurses notes. Counseling: I had a detailed discussion with the patient and/or guardian regarding the historical points, exam findings, and any diagnostic results supporting the discharge/admit diagnosis, lab results, radiology results, the need for outpatient follow up, an OB/Gyne specialist, to return to the emergency department if symptoms worsen or persist or if there are any questions or concerns that arise at home. ED course: Ultrasound reveals of unknown location, hCG 580. Patient educated on strict return precautions and close follow-up. Patient has appointment with OB on , 4 days from now.. 08/22 10:56 Order name: Abo/rh Typing; Complete Time: 12:18 kb 08/22 10:56 Order name: Basic Metabolic Panel; Complete Time: 12:12 kb 08/22 10:56 Order name: CBC with Diff; Complete Time: 11:56 kb 08/22 10:56 Order name: Test, Urine; Complete Time: 11:31 kb 08/22 10:56 Order name: Quantitative Hcg; Complete Time: 12:12 kb 08/22 10:56 Order name: Urinalysis w/ reflexes; Complete Time: 11:31 kb 08/22 10:56 Order name: US Transvaginal Ob; Complete Time: 11:47 kb 08/22 10:56 Order name: IV Saline Lock; Complete Time: 11:39 kb 08/22 10:56 Order name: Labs collected and sent; Complete Time: 11:39 kb 08/22 10:56 Order name: NPO; Complete Time: 11:39 kb Administered Medications: No medications were administered Disposition Summary: 08/22/24 12:24 Discharge Ordered Notes: Location: Home kb Condition: Stable kb Diagnosis - Lower abdominal pain, unspecified kb - Less than 8 weeks gestation of kb Followup: kb - With: Emergency Department - When: As needed - Reason: Worsening of condition Followup: kb - With: Private Physician - When: 2 - 3 days - Reason: Recheck today's complaints, Continuance of care, Re-evaluation by your physician Discharge Instructions: - Discharge Summary Sheet kb - First Trimester of , Pyie-wl-Cccn kb - Abdominal Pain, Adult, Etoj-tf-Vtpc kb - Abdominal Pain During , Lope-ai-Zgsf kb Forms: - Medication Reconciliation Form kb - Antibiotic Education kb - Prescription Opioid Use kb - Patient Portal Instructions kb - Leadership Thank You Letter kb Signatures: Dispatcher [employer] EDMS Tejal Buckner, CLINICAL TRANSFORMATION SPECIALIST-C CLINICAL TRANSFORMATION SPECIALIST-Adelaida Ureña RN RN iw Corrections: (The following items were deleted from the chart) 10:56 10:56 ABO/RH TYPING+BB.LAB.BRZ ordered. EDMS EDMS 10:56 10:56 BASIC METABOLIC PANEL+C.LAB.BRZ ordered. EDMS EDMS 10:56 10:56 CBC+H.LAB.BRZ ordered. EDMS EDMS 10:56 10:56 Test, Urine+UC.LAB.BRZ ordered. EDMS EDMS 10:56 10:56 QUANTITATIVE HCG+C.LAB.BRZ ordered. EDMS EDMS 10:56 10:56 Urinalysis+U.LAB.BRZ ordered. EDMS EDMS
[2024-08-24 04:14] VITALS: BP 112/60; TEMP 98.7; O2SAT 99
== END 2024-08-22 12:37 | disposition home or self-care (01) ==
LOC: ER 10:47
DX: O26.891 Other specified pregnancy related conditions, first trimester (principal); R10.31 Right lower quadrant pain; Z3A.01 Less than 8 weeks gestation of pregnancy
CPT/HCPCS: 36415; 76817; 80048; 81001; 81025; 84702; 85025; 86900; 86901; 99283

== ENCOUNTER 2024-08-27 13:10 | Emergency (ER) | payer OTHER, SELFPAY ==
--- OUTSIDE RECORDS SUMMARY | 2024-08-27 13:15 | XMS REPORT | Continuity of Care Document ---
Author Name Unknown Address [address] [place] [address] [facility] Address [address] [place] [address] Care Team Providers Care Coder Name Role Phone SHAILA IZAGUIRRE Primary Care Physician Unav ailLÁZARO Keith Attending Clinician Unavailable SHAILA IZAGUIRRE Attending Clinician [facility]ail [facility]ending [facility] Unava ilpeggy Alfredo Lázaro BLANCHARD Attending Clinician [phone] Provider, Maribel Temp Attending Clinician Violet Zaida Choudhury CNM Attending Clinician [phone] ZAIDA QUINTERO Attending Clinician Unavaila ble Visit, Maribel Nurse Attending Clinician Unava ilShaila Alberto Attending Clinician + Doctor Unassigned, [place] Attending Clinician U SARAH Figueroa Attending Clinician Unavailab Sarah Falk DO Attending Clinician [phone] AMOL VARMA Attending Clinician Unavailab Leila Chavarria Attending Clinician [phone] Amol Carmichael Attending Clinician [phone] Simone RN, Ruthann R Attending Clinician UnavailROXANA Vogt Attending Clinician Unavailable Only, Ang Db Ha Attending Clinician UnavailRoxana John Attending Clinician [phone] Singer MCKINNEY Valentín Attending Clinician Lab, Adc Fam Pob I Attending Clinician Unavailab le Payers Payer Name Policy Type Policy Number Effective Date Expirati on Date Source [employer]IOR HEBERT [id number] 2018 00:00:00 [facility] [id number] 2023 00:00:00 [place] [id number] 2021 00:00:00 Problems Condition Name Condition Details [...] Date Quantity Comments Source Gender identity [facility] of Social function 2024-03-03 00:00:00 2024-03-03 00:00:00 [facility] Alcoholic beverage intake 2024-03-03 00:00:00 2024-03-03 00:00:00 Lifetime non-drinker (finding) [facility] Alcohol intake 2023-04-04 00:00:00 2023-04-04 00:00:00 Lifetime non-drinker (finding) [facility] Tobacco use and exposure 2022-10-15 00:00:00 2022-10-15 00:00:00 Smokeless tobacco non-user [facility] Exposure to SARS-CoV-2 (event) 2022-07-13 00:00:00 2022-07-23 09:12:00 Not sure [facility] Sex assigned at 2003 00:00:00 2005 00:00:00 [facility] Smoking Status Start Date Stop Date Source Never smoked tobacco [facility] Medications Ordered Medication Name Filled Medication Name Start Date Stop Date Current Medication? Ordering Clinician Indication Dosage Frequency Signature (SIG) Comments Components Source medroxyPROG ESTERone (DEPO-PROVE RA) syringe 150 mg 12-01 20:45: 00 01-25 20:44 :00 No [id number] 150mg 150 mg, Intramuscu lar, [id number], 5 doses, First dose on Fri12/02/23 at 1545, Last dose on Fri11/02/24 at 1545, Routine [facility] medroxyPROG ESTERone (DEPO-PROVE RA) 150 mg/mL syringe 514 00:00: 00 12-01 00:00 :00 No [id number] 150mg 1 mL by Intramuscu lar route every 3 (three) months. [facility] medroxyPROG ESTERone (DEPO-PROVE RA) syringe 150 mg 10-15 20:15: 00 09-08 18:26 :08 No [id number] 150mg 150 mg, Intramuscu lar, [id number], 4 doses, First dose on Fri10/15/22 at 1515, Last dose on Fri06/24/23 at 1515, Routine [facility] medroxyPROG ESTERone (DEPO-PROVE RA) syringe 150 mg 2021-04 0 14:45: 00 04-30 14:48 :00 No [id number] 150mg 150 mg, Intramuscu lar, [id number], 2 doses, First dose on Tu02/05/22 at 0945, Last dose on Fri04/30/22 at 0945, Routine [facility] medroxyPROG ESTERone (DEPO-PROVE RA) injection 150 mg 07-23 16:00: 00 06-24 16:44 :00 No [id number] 150mg 150 mg, Intramuscu lar, [id number], 4 doses, First dose on Fri07/23/21 at 1100, Last dose on Fri04/01/22 at 1100, Routine [facility] medroxyPROG ESTERone (DEPO-PROVE RA) injection 150 mg 2020-0412 13:45: 00 01-08 13:44 :00 No [id number] 150mg [facility] Immunizations Ordered Immunization Name Filled Immunization Name Date Status Comments Source HPV 2021-01-22 00:00:00 Completed [facility] HPV 2021-01-22 00:00:00 Completed [facility] HPV 2021-01-22 00:00:00 Completed [facility] HPV 2021-01-22 00:00:00 Completed [facility] HPV 2021-01-22 00:00:00 Completed [facility] HPV 2021-01-22 00:00:00 Completed [facility] HPV 2021-01-22 00:00:00 Completed [facility] HPV 2021-01-22 00:00:00 Completed [facility] HPV 2021-01-22 00:00:00 Completed [facility] HPV 2021-01-22 00:00:00 Completed [facility] HPV 2021-01-22 00:00:00 Completed [facility] HPV 2021-01-22 00:00:00 Completed SARS-COV-2 COVID-19 PFIZER VACCINE 2021-01-19 00:00:00 Completed [facility] SARS-COV-2 COVID-19 PFIZER VACCINE 2021-01-19 00:00:00 Completed [facility] SARS-COV-2 COVID-19 PFIZER VACCINE 2021-01-19 00:00:00 Completed [facility] SARS-COV-2 COVID-19 PFIZER VACCINE 2021-01-19 00:00:00 Completed [facility] SARS-COV-2 COVID-19 PFIZER VACCINE 2021-01-19 00:00:00 Completed SARS-COV-2 COVID-19 PFIZER VACCINE 2020-12-29 00:00:00 Completed [facility] SARS-COV-2 COVID-19 PFIZER VACCINE 2020-12-29 00:00:00 Completed [facility] SARS-COV-2 COVID-19 PFIZER VACCINE 2020-12-29 00:00:00 Completed [facility] SARS-COV-2 COVID-19 PFIZER VACCINE 2020-12-29 00:00:00 Completed [facility] SARS-COV-2 COVID-19 PFIZER VACCINE 2020-12-29 00:00:00 Completed HPV9 2020-09-20 00:00:00 Completed [facility] HPV9 2020-09-20 00:00:00 Completed [facility] HPV9 2020-09-20 00:00:00 Completed [facility] HPV9 2020-09-20 00:00:00 Completed [facility] HPV9 2020-09-20 00:00:00 Completed [facility] HPV9 2020-09-20 00:00:00 Completed [facility] HPV9 2020-09-20 00:00:00 Completed [facility] HPV9 2020-09-20 00:00:00 Completed [facility] HPV9 2020-09-20 00:00:00 Completed [facility] HPV9 2020-09-20 00:00:00 Completed [facility] HPV9 2020-09-20 00:00:00 Completed [facility] HPV9 2020-09-20 00:00:00 Completed [facility] HPV9 2020-07-20 00:00:00 Completed [facility] HPV9 2020-07-20 00:00:00 Completed [facility] HPV9 2020-07-20 00:00:00 Completed [facility] HPV9 2020-07-20 00:00:00 Completed [facility] HPV9 2020-07-20 00:00:00 Completed [facility] HPV9 2020-07-20 00:00:00 Completed [facility] HPV9 2020-07-20 00:00:00 Completed [facility] HPV9 2020-07-20 00:00:00 Completed [facility] HPV9 2020-07-20 00:00:00 Completed [facility] HPV9 2020-07-20 00:00:00 Completed [facility] HPV9 2020-07-20 00:00:00 Completed [facility] HPV9 2020-07-20 00:00:00 Completed [facility] TDAP 2014-06-16 00:00:00 Completed [facility] TDAP 2014-06-16 00:00:00 Completed [facility] TDAP 2014-06-16 00:00:00 Completed [facility] TDAP 2014-06-16 00:00:00 Completed [facility] TDAP 2014-06-16 00:00:00 Completed Varicella (varivax)(chicken pox) 2009-09-06 00:00:00 Completed [facility] Varicella (varivax)(chicken pox) 2009-09-06 00:00:00 Completed [facility] Varicella (varivax)(chicken pox) 2009-09-06 00:00:00 Completed [facility] Varicella (varivax)(chicken pox) 2009-09-06 00:00:00 Completed [facility] Varicella (varivax)(chicken pox) 2009-09-06 00:00:00 Completed DTaP, Unspecified Formulation 2008-08-24 00:00:00 Completed [facility] IPV 2008-08-24 00:00:00 Completed [facility] DTaP, Unspecified Formulation 2008-08-24 00:00:00 Completed [facility] IPV 2008-08-24 00:00:00 Completed [facility] DTaP, Unspecified Formulation 2008-08-24 00:00:00 Completed [facility] IPV 2008-08-24 00:00:00 Completed [facility] DTaP, Unspecified Formulation 2008-08-24 00:00:00 Completed [facility] IPV 2008-08-24 00:00:00 Completed [facility] DTaP, Unspecified Formulation 2008-08-24 00:00:00 Completed IPV 2008-08-24 00:00:00 Completed Pediarix (dtap/hep B/ipv) 2006-07-21 00:00:00 Completed [facility] HEPATITIS A 2006-07-21 00:00:00 Completed [facility] HIB 4 Dose Schedule 2006-07-21 00:00:00 Completed [facility] Proquad (MMR/VARICELLA) 2006-07-21 00:00:00 Completed [facility] Pediarix (dtap/hep B/ipv) 2006-07-21 00:00:00 Completed [facility] HEPATITIS A 2006-07-21 00:00:00 Completed [facility] HIB 4 Dose Schedule 2006-07-21 00:00:00 Completed [facility] Proquad (MMR/VARICELLA) 2006-07-21 00:00:00 Completed [facility] Pediarix (dtap/hep B/ipv) 2006-07-21 00:00:00 Completed [facility] HEPATITIS A 2006-07-21 00:00:00 Completed [facility] HIB 4 Dose Schedule 2006-07-21 00:00:00 Completed [facility] Proquad (MMR/VARICELLA) 2006-07-21 00:00:00 Completed [facility] Pediarix (dtap/hep B/ipv) 2006-07-21 00:00:00 Completed [facility] HEPATITIS A 2006-07-21 00:00:00 Completed [facility] HIB 4 Dose Schedule 2006-07-21 00:00:00 Completed [facility] Proquad (MMR/VARICELLA) 2006-07-21 00:00:00 Completed [facility] Pediarix (dtap/hep B/ipv) 2006-07-21 00:00:00 Completed HEPATITIS A 2006-07-21 00:00:00 Completed HIB 4 Dose Schedule 2006-07-21 00:00:00 Completed Proquad (MMR/VARICELLA) 2006-07-21 00:00:00 Completed HEPATITIS A 2005-04-23 00:00:00 Completed [facility] MMR 2005-04-23 00:00:00 Completed [facility] Varicella (varivax)(chicken pox) 2005-04-23 00:00:00 Completed [facility] HEPATITIS A 2005-04-23 00:00:00 Completed [facility] MMR 2005-04-23 00:00:00 Completed [facility] Varicella (varivax)(chicken pox) 2005-04-23 00:00:00 Completed [facility] HEPATITIS A 2005-04-23 00:00:00 Completed [facility] MMR 2005-04-23 00:00:00 Completed [facility] Varicella (varivax)(chicken pox) 2005-04-23 00:00:00 Completed [facility] HEPATITIS A 2005-04-23 00:00:00 Completed [facility] MMR 2005-04-23 00:00:00 Completed [facility] Varicella (varivax)(chicken pox) 2005-04-23 00:00:00 Completed [facility] HEPATITIS A 2005-04-23 00:00:00 Completed MMR 2005-04-23 00:00:00 Completed Varicella (varivax)(chicken pox) 2005-04-23 00:00:00 Completed Pediarix (dtap/hep B/ipv) 2005-03-26 00:00:00 Completed [facility] HIB 3 Dose Schedule 2005-03-26 00:00:00 Completed [facility] Pneumococcal 7 Conjugate, PCV7 (Prevnar7) 2005-03-26 00:00:00 Completed [facility] Pediarix (dtap/hep B/ipv) 2005-03-26 00:00:00 Completed [facility] HIB 3 Dose Schedule 2005-03-26 00:00:00 Completed [facility] Pneumococcal 7 Conjugate, PCV7 (Prevnar7) 2005-03-26 00:00:00 Completed [facility] Pediarix (dtap/hep B/ipv) 2005-03-26 00:00:00 Completed [facility] HIB 3 Dose Schedule 2005-03-26 00:00:00 Completed [facility] Pneumococcal 7 Conjugate, PCV7 (Prevnar7) 2005-03-26 00:00:00 Completed [facility] Pediarix (dtap/hep B/ipv) 2005-03-26 00:00:00 Completed [facility] HIB 3 Dose Schedule 2005-03-26 00:00:00 Completed [facility] Pneumococcal 7 Conjugate, PCV7 (Prevnar7) 2005-03-26 00:00:00 Completed [facility] Pediarix (dtap/hep B/ipv) 2005-03-26 00:00:00 Completed HIB 3 Dose Schedule 2005-03-26 00:00:00 Completed Pneumococcal 7 Conjugate, PCV7 (Prevnar7) 2005-03-26 00:00:00 Completed Pediarix (dtap/hep B/ipv) 2003 00:00:00 Completed [facility] HIB 4 Dose Schedule 2003 00:00:00 Completed [facility] Pneumococcal 7 Conjugate, PCV7 (Prevnar7) 2003 00:00:00 Completed [facility] Pediarix (dtap/hep B/ipv) 2003 00:00:00 Completed [facility] HIB 4 Dose Schedule 2003 00:00:00 Completed [facility] Pneumococcal 7 Conjugate, PCV7 (Prevnar7) 2003 00:00:00 Completed [facility] Pediarix (dtap/hep B/ipv) 2003 00:00:00 Completed [facility] HIB 4 Dose Schedule 2003 00:00:00 Completed [facility] Pneumococcal 7 Conjugate, PCV7 (Prevnar7) 2003 00:00:00 Completed [facility] Pediarix (dtap/hep B/ipv) 2003 00:00:00 Completed [facility] HIB 4 Dose Schedule 2003 00:00:00 Completed [facility] Pneumococcal 7 Conjugate, PCV7 (Prevnar7) 2003 00:00:00 Completed [facility] Pediarix (dtap/hep B/ipv) 2003 00:00:00 Completed HIB 4 Dose Schedule 2003 00:00:00 Completed Pneumococcal 7 Conjugate, PCV7 (Prevnar7) 2003 00:00:00 Completed Hep B, Adol or Pedi Dosage 2003 00:00:00 Completed [facility] Hep B, Adol or Pedi Dosage 2003 00:00:00 Completed [facility] Hep B, Adol or Pedi Dosage 2003 00:00:00 Completed [facility] Hep B, Adol or Pedi Dosage 2003 00:00:00 Completed [facility] Hep B, Adol or Pedi Dosage 2003 00:00:00 Completed HPV9 Unknown Completed [facility] HPV Unknown Completed [facility] SARS-COV-2 COVID-19 PFIZER VACCINE Unknown Completed [facility] DTaP, Unspecified Formulation Unknown Completed [facility] Pediarix (dtap/hep B/ipv) Unknown Completed [facility] HEPATITIS A Unknown Completed [facility] Hep B, Adol or Pedi Dosage Unknown Completed [facility] HIB 3 Dose Schedule Unknown Completed [facility] HIB 4 Dose Schedule Unknown Completed [facility] MMR Unknown Completed [facility] Proquad (MMR/VARICELLA) Unknown Completed [facility] Pneumococcal 7 Conjugate, PCV7 (Prevnar7) Unknown Completed [facility] IPV Unknown Completed [facility] TDAP Unknown Completed [facility] Varicella (varivax)(chicken pox) Unknown Completed [facility] HPV9 Unknown Completed [facility] HPV Unknown Completed [facility] SARS-COV-2 COVID-19 PFIZER VACCINE Unknown Completed [facility] DTaP, Unspecified Formulation Unknown Completed [facility] Pediarix (dtap/hep B/ipv) Unknown Completed [facility] HEPATITIS A Unknown Completed [facility] Hep B, Adol or Pedi Dosage Unknown Completed [facility] HIB 3 Dose Schedule Unknown Completed [facility] HIB 4 Dose Schedule Unknown Completed [facility] MMR Unknown Completed [facility] Proquad (MMR/VARICELLA) Unknown Completed [facility] Pneumococcal 7 Conjugate, PCV7 (Prevnar7) Unknown Completed [facility] IPV Unknown Completed [facility] TDAP Unknown Completed [facility] Varicella (varivax)(chicken pox) Unknown Completed [facility] HPV9 Unknown Completed [facility] HPV Unknown Completed [facility] SARS-COV-2 COVID-19 PFIZER VACCINE Unknown Completed [facility] DTaP, Unspecified Formulation Unknown Completed [facility] Pediarix (dtap/hep B/ipv) Unknown Completed [facility] HEPATITIS A [facility], Adol or Pedi Dosage Unknown Completed [facility] HIB 3 Dose Schedule Unknown Completed [facility] HIB 4 Dose Schedule Unknown Completed [facility] MMR Unknown Completed [facility] Proquad (MMR/VARICELLA) Unknown Completed [facility] Pneumococcal 7 Conjugate, PCV7 (Prevnar7) Unknown Completed [facility] IPV Unknown Completed [facility] TDAP Unknown Completed [facility] Varicella (varivax)(chicken pox) Unknown Completed [facility] Vital Signs Vital Name Observation Time Observation Value Comments S ource Systolic blood pressure 2024-03-03 19:10:00 117 mm[Hg] [facility] Diastolic blood pressure 2024-03-03 19:10:00 59 mm[Hg] [facility] Heart rate 2024-03-03 19:10:00 65 /min [facility] Body temperature 2024-03-03 19:10:00 36.78 Lauren [facility] Respiratory rate 2024-03-03 19:10:00 17 /min [facility] Body height 2024-03-03 19:10:00 157.5 cm [facility] Body weight 2024-03-03 19:10:00 59.058 kg [facility] BMI 2024-03-03 19:10:00 23.81 kg/m2 [facility] Systolic blood pressure 2023-12-02 20:04:00 113 mm[Hg] [facility] Diastolic blood pressure 2023-12-02 20:04:00 61 mm[Hg] [facility] Heart rate 2023-12-02 20:04:00 67 /min [facility] Body temperature 2023-12-02 20:04:00 36.5 Lauren [facility] Respiratory rate 2023-12-02 20:04:00 17 /min [facility] Body height 2023-12-02 20:04:00 157.5 cm [facility] Body weight 2023-12-02 20:04:00 61.1 kg [facility] BMI 2023-12-02 20:04:00 24.64 kg/m2 [facility] Systolic blood pressure 2023-09-09 18:06:00 99 mm[Hg] [facility] Diastolic blood pressure 2023-09-09 18:06:00 54 mm[Hg] [facility] Heart rate 2023-09-09 18:06:00 58 /min [facility] Body temperature 2023-09-09 18:06:00 36.67 Lauren [facility] Respiratory rate 2023-09-09 18:06:00 18 /min [facility] Body height 2023-09-09 18:06:00 157.5 cm [facility] Body weight 2023-09-09 18:06:00 60.963 kg [facility] BMI 2023-09-09 18:06:00 24.58 kg/m2 [facility] Systolic blood pressure 2023-04-04 19:39:00 112 mm[Hg] [facility] Diastolic blood pressure 2023-04-04 19:39:00 63 mm[Hg] [facility] Heart rate 2023-04-04 19:39:00 56 /min [facility] Body temperature 2023-04-04 19:39:00 36.89 Lauren [facility] Respiratory rate 2023-04-04 19:39:00 18 /min [facility] Body height 2023-04-04 19:39:00 157.5 cm [facility] Body weight 2023-04-04 19:39:00 57.561 kg [facility] BMI 2023-04-04 19:39:00 23.21 kg/m2 [facility] Systolic blood pressure 2023-01-07 19:04:00 115 mm[Hg] [facility] Diastolic blood pressure 2023-01-07 19:04:00 63 mm[Hg] [facility] Heart rate 2023-01-07 19:04:00 65 /min [facility] Body temperature 2023-01-07 19:04:00 36.39 Lauren [facility] Respiratory rate 2023-01-07 19:04:00 18 /min [facility] Body height 2023-01-07 19:04:00 157.5 cm [facility] Body weight 2023-01-07 19:04:00 57.862 kg [facility] BMI 2023-01-07 19:04:00 23.33 kg/m2 [facility] Systolic blood pressure 2022-10-15 19:02:00 108 mm[Hg] [facility] Diastolic blood pressure 2022-10-15 19:02:00 64 mm[Hg] [facility] Heart rate 2022-10-15 19:02:00 80 /min [facility] Body temperature 2022-10-15 19:02:00 36.67 Lauren [facility] Respiratory rate 2022-10-15 19:02:00 18 /min [facility] Body height 2022-10-15 19:02:00 157.5 cm [facility] Body weight 2022-10-15 19:02:00 57.743 kg [facility] BMI 2022-10-15 19:02:00 23.28 kg/m2 [facility] Systolic blood pressure 2022-07-23 14:24:00 103 mm[Hg] [facility] Diastolic blood pressure 2022-07-23 14:24:00 64 mm[Hg] [facility] Heart rate 2022-07-23 14:24:00 63 /min [facility] Body temperature 2022-07-23 14:24:00 36.5 Lauren [facility] Respiratory rate 2022-07-23 14:24:00 16 /min [facility] Body height 2022-07-23 14:24:00 157.5 cm [facility] Body weight 2022-07-23 14:24:00 58.469 kg [facility] BMI 2022-07-23 14:24:00 23.58 kg/m2 [facility] Systolic blood pressure 2022-04-30 14:39:00 119 mm[Hg] [facility] Diastolic blood pressure 2022-04-30 14:39:00 56 mm[Hg] [facility] Heart rate 2022-04-30 14:39:00 61 /min [facility] Body temperature 2022-04-30 14:39:00 36.72 Lauren [facility] Respiratory rate 2022-04-30 14:39:00 18 /min [facility] Body height 2022-04-30 14:39:00 157.5 cm [facility] Body weight 2022-04-30 14:39:00 56.359 kg [facility] BMI 2022-04-30 14:39:00 22.73 kg/m2 [facility] Systolic blood pressure 2022-02-05 13:50:00 108 mm[Hg] [facility] Diastolic blood pressure 2022-02-05 13:50:00 51 mm[Hg] [facility] Heart rate 2022-02-05 13:50:00 62 /min [facility] Body temperature 2022-02-05 13:50:00 36.61 Lauren [facility] Respiratory rate 2022-02-05 13:50:00 18 /min [facility] Body height 2022-02-05 13:50:00 157.5 cm [facility] Body weight 2022-02-05 13:50:00 57.017 kg [facility] BMI 2022-02-05 13:50:00 22.99 kg/m2 [facility] Body mass index (BMI) [Percentile] Per age and sex 2022-02-05 13:50:00 66.08 % [facility] Systolic blood pressure 2022-01-22 14:14:00 108 mm[Hg] [facility] Diastolic blood pressure 2022-01-22 14:14:00 65 mm[Hg] [facility] Heart rate 2022-01-22 14:14:00 71 /min [facility] Body temperature 2022-01-22 14:14:00 36.44 Lauren [facility] Respiratory rate 2022-01-22 14:14:00 18 /min [facility] Body height 2022-01-22 14:14:00 157.5 cm [facility] Body weight 2022-01-22 14:14:00 56.728 kg [facility] BMI 2022-01-22 14:14:00 22.87 kg/m2 [facility] Body mass index (BMI) [Percentile] Per age and sex 2022-01-22 14:14:00 65.07 % [facility] Systolic blood pressure 2021-09-13 13:20:00 115 mm[Hg] [facility] Diastolic blood pressure 2021-09-13 13:20:00 48 mm[Hg] [facility] Heart rate 2021-09-13 13:20:00 59 /min [facility] Body temperature 2021-09-13 13:20:00 37.28 Lauren [facility] Respiratory rate 2021-09-13 13:20:00 18 /min [facility] Body weight 2021-09-13 13:20:00 57.607 kg [facility] Oxygen saturation in Arterial blood by Pulse oximetry 2021-09-13 13:20:00 99 /min [facility] Systolic blood pressure 2021-07-23 15:21:00 110 mm[Hg] [facility] Diastolic blood pressure 2021-07-23 15:21:00 54 mm[Hg] [facility] Heart rate 2021-07-23 15:21:00 72 /min [facility] Body temperature 2021-07-23 15:21:00 36.28 Lauren [facility] Respiratory rate 2021-07-23 15:21:00 20 /min [facility] Body height 2021-07-23 15:21:00 157.5 cm [facility] Body weight 2021-07-23 15:21:00 57.777 kg [facility] BMI 2021-07-23 15:21:00 23.30 kg/m2 [facility] Body mass index (BMI) [Percentile] Per age and sex 2021-07-23 15:21:00 70.26 % [facility] Procedures Procedure Date / Time Performed Performing Clinicia n Source POCT TEST 2023-09-09 18:31:00 Lázaro Alfredo [facility] ASSIGNMENT OF BENEFITS 2022-10-15 18:41:55 Rosalva r Unassigned, Bigelow [facility] POCT TEST 2022-01-22 14:17:00 Rommel [facility]irre [facility] [facility] POCT TEST 2021-09-13 13:25:00 Karen Balbuena ra [facility] URINALYSIS 2021-09-13 13:24:00 [facility]REFUSAL FOR DIAGNOSIS AND TREATMENT 2021-09-13 13:16:37 Doctor Unassigned, Bigelow [facility] GC & CHLAMYDIA AMPLIFIED ASSAY 2021-07-23 15:53:00 Shaila Izaguirre [facility] POCT TEST 2021-07-23 15:42:00 Rommel Izaguirre [facility] Encounters Start Date/Time End Date/Time Encounter Type Admission Type Attending [facility] Facility Care Department Encounter ID Source 2021-02-25 13:02:37 Emergency [facility] [id number] [facility] 2024-08-26 09:00:00 2024-08-26 09:00:00 Outpatient SHAIAL IRIZARRY [facility] [id number] [facility] 2024-06-15 11:00:00 2024-06-15 11:00:00 Outpatient LÁZARO LOPEZ [facility] [id number] [facility] 2024-05-26 13:30:00 2024-05-26 13:30:00 Outpatient R [facility] [id number] [facility] 2024-03-03 13:30:00 2024-03-03 13:30:00 Nurse Visit Visit, Ang-Rmchp Nurse Lázaro Alfredo Visit, Gallo-Josechkathy Nurse FLMCKAYLA [facility] 1.2.840.114 350.1.13.10 4.2.7.2.686 [id number] [facility] 2024-03-03 13:30:00 2024-03-03 13:19:33 Outpatient LÁZARO LOPEZ [facility] [id number] [facility] 2023-12-02 15:00:00 2023-12-02 15:50:01 Outpatient R LÁZARO ALFREDO [facility] [id number] [facility] 2023-12-02 15:00:00 2023-12-02 15:50:01 Office Visit Juni [facility] & CHILD [facility] 1..840.114 350.1.13.10 4.2.7.2.686 [id number] 107 [id number] [facility] 2023-12-02 13:30:00 2023-12-02 13:30:00 Outpatient R [facility] [id number] [facility] 2023-09-09 13:15:00 2023-09-09 13:36:19 Outpatient R LÁZARO ALFREDO [facility] [id number] [facility] 2023-09-09 13:15:00 2023-09-09 13:36:19 Office Visit Provider, Zaida Mariscal [facility] [facility] CHILD [facility] 1..840.114 350.1.13.10 4.2.7.2.686 [id number] 107 [id number] [facility] 2023-08-21 13:18:21 2023-08-21 13:18:21 Outpatient S[facility] [id number] Michael Webber 2023-06-27 10:30:00 2023-06-27 10:30:00 Outpatient R [facility] [id number] [facility] 2023-04-04 13:00:00 2023-04-04 13:00:00 Nurse Visit Visit, Maribel Nurse Shaila Izaguirre [facility] & CHILD [facility] 1..840.114 350.1.13.10 4.2.7.2.686 [id number] [facility] 2023-04-04 13:00:00 2023-04-04 12:59:48 Outpatient R SHAILA IZAGUIRRE [facility] [id number] [facility] 2023-01-07 13:00:00 2023-01-07 14:10:36 [facility] [id number] 2023-01-07 13:00:00 2023-01-07 14:10:36 Nurse Visit Visit, Shaila Reeves [facility]ILD [facility] 1.840.114 350.1.13.10 4.2.7.2.686 [id number] [facility] 2022-10-15 13:30:00 2022-10-15 15:08:26 Outpatient R SHAILA IZAGUIRRE [facility] [id number] [facility] 2022-10-15 13:30:00 2022-10-15 15:08:26 Office Visit Shaila Izaguirre [facility]ILD [facility] 1.84.114 350.1.13.10 4.2.7.2.686 [id number] [facility] 2022-10-15 00:00:00 2022-10-15 00:00:00 Orders Only Doctor Unassigned, Bigelow [facility] 1.84.114 350.1.13.10 4.2.7.2.686 [id number] [facility] 2022-07-23 09:30:00 2022-07-23 09:34:03 Outpatient R SHAILA IZAGUIRRE [facility] [id number] [facility] 2022-07-23 09:30:00 2022-07-23 09:34:03 Nurse Visit Visit, Shaila Reeves [facility] TI[facility]MER [facility] 1.840.114 350.1.13.10 4.2.7.2.686 [id number] [facility] 2022-04-30 08:30:00 2022-04-30 08:48:20 Outpatient SHAILA IRIZARRY FLMCKAYLA [facility] [id number] [facility] 2022-04-30 08:30:00 2022-04-30 08:48:20 Nurse Visit Visit, Shaila Reeves [facility]ILD [facility] 1..840.114 350.1.13.10 4.2.7.2.686 [id number] 107 [id number] [facility] 2022-02-05 08:30:00 2022-02-05 08:54:05 Nurse Visit Visit, Shaila Reeves [facility] .840.114 350.1.13.10 4.2.7.2.686 [id number] 107 [id number] [facility] 2022-02-05 08:30:00 2022-02-05 08:30:00 Outpatient SHAILA IRIZARRY [facility] [id number] [facility] 2022-01-22 09:00:00 2022-01-22 09:31:08 Nurse Visit Visit, Shaila Reeves [facility] ..840.114 350.1.13.10 4.2.7.2.686 [id number] 107 [id number] [facility] 2022-01-22 09:00:00 2022-01-22 09:00:00 Outpatient SHAILA IRIZARRY [facility] [id number] [facility] 2022-01-22 00:00:00 2022-01-22 00:00:00 Letter (Out) Visit, Maribel Puckett [facility] .840.114 350.1.13.10 4.2.7.2.686 [id number] 107 [id number] [facility] 2021-10-15 09:00:00 2021-10-15 09:00:00 Outpatient R [facility] [id number] [facility] 2021-10-15 09:00:00 2021-10-15 09:00:00 Outpatient R SHAILA IZAGUIRRE [facility] [id number] [facility] 2021-09-13 08:23:00 2021-09-13 10:01:00 Emergency X SARAH BALBUENA [facility] ERT [id number] [facility] 2021-09-13 08:23:00 2021-09-13 10:01:00 Emergency Sarah Balbuena [facility] 1.2.840.114 350.1.13.10 4.2.7.2.686 [id number] [facility] 2021-09-12 00:00:00 2021-09-12 00:00:00 Telephone Shaila Izaguirre [facility]ILD [facility] 1.2.840.114 350.1.13.10 4.2.7.2.686 [id number] [facility] 2021-07-23 10:00:00 2021-07-23 10:54:38 Office Visit Shaila Izaguirre [facility] 1.2.840.114 350.1.13.10 4.2.7.2.686 [id number] 107 [id number] [facility] 2021-07-23 10:00:00 2021-07-23 10:54:38 Outpatient R SHAILA IZAGUIRRE [facility] [id number] [facility] 2021-07-23 10:00:00 2021-07-23 10:00:00 Outpatient R SHAILA IZAGUIRRE [facility] [id number] [facility] 2021-07-23 10:00:00 2021-07-23 10:00:00 Outpatient R SHAILA IZAGUIRRE [facility] [id number] [facility] 2021-07-23 00:00:00 2021-07-23 00:00:00 Orders Only Doctor Unassigned, Bigelow [facility] 1.840.114 350.1.13.10 4.2.7.2.686 [id number] [facility] 2021-07-23 00:00:00 2021-07-23 00:00:00 Letter (Out) Shaila Izaguirre [facility]ILD [facility] 1.84.114 350.1.13.10 4.2.7.2.686 [id number] 107 [id number] [facility] 2021-07-05 10:00:00 2021-07-05 10:14:48 Outpatient R SHAILA IZAGUIRRE [facility] [id number] [facility] 2021-07-05 10:00:00 2021-07-05 10:14:48 [facility] 1.84.114 350.1.13.10 4.2.7.2.686 [id number] [facility] 2021-07-05 09:45:00 2021-07-05 10:00:00 Office Visit Shaila Izaguirre [facility] 1.84.114 350.1.13.10 4.2.7.2.686 [id number] 107 [id number] [facility] 2021-07-05 09:45:00 2021-07-05 09:45:00 Outpatient R SHAILA IZAGUIRRE [facility] [id number] [facility] 2021-07-05 00:00:00 2021-07-05 00:00:00 Letter (Out) Shaila Izaguirre [facility] & [facility]ILD [facility] 1..840.114 350.1.13.10 4.2.7.2.686 [id number] [facility] 2021-06-06 08:30:00 2021-06-06 08:30:00 Outpatient AMOL BLACKWOOD [facility] [id number] [facility] 2021-05-01 08:30:00 2021-05-01 08:30:00 Outpatient R AMOL VARMA [facility] [id number] [facility] 2021-02-06 08:05:48 2021-02-06 08:33:13 Nurse [facility] & CHILD [facility] ..840.114 350.1.13.10 4.2.7.2.686 [id number] 107 [id number] [facility] 2021-02-06 08:30:00 2021-02-06 08:30:00 Outpatient R LEILA BARRERA [facility] [id number] [facility] 2021-02-05 14:00:00 2021-02-05 14:00:00 Outpatient R [facility] [id number] [facility] 2021-01-22 14:06:34 2021-01-22 14:21:34 Nurse Visit Visit, Gallo-Rmchp Amol Harper [facility] ..840.114 350.1.13.10 4.2.7.2.686 [id number] 107 [id number] [facility] 2021-01-22 14:00:00 2021-01-22 14:00:00 Outpatient R [facility] [id number] [facility] 2020-12-23 00:00:00 2020-12-23 00:00:00 Telephone Ruthann Nichols [facility] 1.840.114 350.1.13.10 4.2.7.2.686 [id number] [facility] 2020-12-22 10:10:00 2020-12-22 10:10:00 Outpatient R ELMO ROXANA [facility] [id number] [facility] 2020-12-22 09:58:55 2020-12-22 10:08:55 Laboratory Only Only, Ang Db Test Elmo [facility] 1.840.114 350.1.13.10 4.2.7.2.686 [id number] [facility] 2020-10-04 10:00:00 2020-10-04 10:00:00 Outpatient R [facility] [id number] [facility] 2020-09-20 13:26:42 2020-09-20 13:56:43 Nurse Visit Visit, Ang-Rmchp Nurse Amol Varma [facility] 1..840.114 350.1.13.10 4.2.7.2.686 [id number] [facility] 2020-09-20 13:45:00 2020-09-20 13:45:00 Outpatient R [facility] [id number] [facility] 2020-09-20 08:30:00 2020-09-20 08:30:00 Outpatient R AMOL VARMA [facility] [id number] [facility] 2020-09-20 00:00:00 2020-09-20 00:00:00 Orders Only Doctor Unassigned, Bigelow [facility] 1..840.114 350.1.13.10 4.2.7.2.686 [id number] [facility] 2020-09-19 10:00:00 2020-09-19 10:00:00 Outpatient R [facility] [id number] [facility] 2020-08-10 08:20:00 2020-08-10 10:10:00 Emergency Valentín Lyons [facility] 1.2840.114 350.1.13.10 4.2.7.2.686 [id number] [facility] 2020-08-10 00:00:00 2020-08-10 00:00:00 Orders Only Doctor Unassigned, Bigelow [facility] 1.284.114 350.1.13.10 4.2.7.2.686 [id number] [facility] 2020-08-03 15:30:00 2020-08-03 15:30:00 Outpatient R AMOL VARMA [facility] [id number] [facility] 2020-08-03 09:30:00 2020-08-03 09:30:00 Outpatient R [facility] [id number] [facility] 2020-07-20 10:10:16 2020-07-20 11:02:38 Office Visit Amol Varma [facility] 1.840.114 350.1.13.10 4.2.7.2.686 [id number] [facility] 2020-07-20 09:15:00 2020-07-20 09:15:00 Outpatient R AMOL VARMA [facility] [id number] [facility] 2020-07-20 00:00:00 2020-07-20 00:00:00 Orders Only Doctor Unassigned, Bigelow [facility] 1.284.114 350.1.13.10 4.2.7.2.686 [id number] [facility] 2020-05-02 14:20:00 2020-05-02 14:20:00 Outpatient R ROXANA BORREGO [facility] [id number] [facility] 2020-05-02 10:03:49 2020-05-02 10:23:49 Laboratory Only Lab, [facility] Fam Pascual Borrego [facility] Office Building One 1.84.114 350.1.13.10 4.2.7.2.686 [id number] [facility] 2020-05-01 00:00:00 2020-05-01 00:00:00 Telephone LyonsValentín juarez [facility] Office [facility] 1.84.114 350.1.13.10 4.2.7.2.686 [id number] [facility] 2020-04-15 16:20:00 2020-04-15 16:20:00 Outpatient Jeremiah BORREGO [facility] [id number] [facility] 2020-04-15 15:25:01 2020-04-15 15:45:01 Laboratory Only Lab, [facility] 1.840.114 350.1.13.10 4.2.7.2.686 [id number] [facility] Results Test Description Test Time Test Comments Results Result Co mments Source [facility] [id number] 18:31:00* Test Item Value Reference Range Interpretation Comme nts POCT PREG (test code = 1605) Negative On board controls acceptable with C Line (test code = 3574) Yes POCT PREG LOT # (test code = 3575) POCT PREG TEST DATE ( test code = 3576) [facility] [id number] 14:17:00* Test Item Value Reference Range Interpretation Comme nts POCT PREG (test code = 1605) Negative On board controls acceptable with C Line (test code = 3574) Yes POCT PREG LOT # (test code = 3575) POCT PREG TEST DATE ( test code = 3576) [facility] [id number] 13:25:00* Test Item Value Reference Range Interpretation Comme nts POCT PREG (test code = 1605) negative On board controls acceptable with C Line (test code = 3574) present POCT PREG LOT # (test code = 3575) [id number] POCT PREG TEST DATE ( test code = 3576) Lab Interpretation (test cod e = 70256-6) [id number] 15:42:00* Test Item Value Reference Range Interpretation Comme nts POCT PREG (test code = 1605) Negative On board controls acceptable with C Line (test code = 3574) Yes POCT PREG LOT # (test code = 3575) POCT PREG TEST DATE ( test code = 3576) [facility]
[2024-08-27 13:51] LABS: Absolute Basophils 0.1 K/uL (0-0.5); Absolute Eosinophils 0.1 K/uL (0-0.5); Absolute Monocytes 0.8 K/uL (0.1-1.3); Absolute Neutrophil 5.7 K/uL (1.8-8.0); Basophils % 0.7 % (0-1.3); Eosinophils % 1.5 % (0-4.4); Hematocrit 43.1 % (36.0-45.0); Hemoglobin 15.4 g/dL (12.0-15.0); Lymphocytes % 30.5 % (15.3-44.8); MCH 30.2 pg (27.0-35.0); MCHC 35.8 g/dL (32.0-36.0); MCV 84.4 fL (80-100); MPV 8.7 fL (7.6-11.3); Monocytes % 8.1 % (3.3-12.3); Neutrophils % 59.2 % (41.7-73.7); Nucleated Red Blood Cells % 0.1 % (0-0); Platelets 239 thou/uL (152-406); RBC Red Blood Cell Count 5.11 M/uL (3.86-4.86); Red Cell Distribution Width 13.2 % (12.1-15.2)
[2024-08-27 13:52] LABS: Specific Gravity 1.014 (1.005-1.030)
[2024-08-27 14:24] LABS: Anion Gap 9.6 mEq/L (5.0-15.0); Potassium 3.6 mEq/L (3.5-5.1)
--- NOTE | 2024-08-27 14:57 | RAD REPORT ---
EXAMINATION: US FIRST TRIMESTER TRANSVAGINAL WITH DOPPLER CLINICAL INDICATION: with pelvic pain TECHNIQUE: Real-time obstetrical ultrasonography of the maternal pelvis and first trimester was performed transvaginally. Color and spectral Doppler evaluation of the ovaries was performed. COMPARISON: August 22, 2024. FINDINGS: The uterus measures 8 x 4 x 5 cm. A gestational sac is not visualized within the endometrium. Right ovary normal in size and echotexture Left ovary normal in size and echotexture Right and left adnexa unremarkable Small amount of free fluid within the cul-de-sac. IMPRESSION: Non visualization of a gestational sac within the endometrium. This could be a viable intrauterine pr egnancy in which the gestational sac not seen secondary to the early gestation. Other considerations include an and even ectopic . This should be correlated clinically and with serial beta-hCG levels. Follow-up endovaginal sonogram in one week recommended for reevaluation
[2024-08-27 15:32] LABS: Blood Morphology Comment NOT SEEN (NOT SEEN); Platelet Estimate ADEQ; White Blood Cell Scan OK (OK)
--- NOTE | 2024-08-27 16:11 | EDPHYS ---
Physician Documentation [facility] Name: Betzaida Ramires Age: 19 yrs Sex: Female : 2005 Arrival Date: 08/27/2024 Time: 13:10 Bed 13 Private MD: ED Physician Katelyn Belcher HPI: 08/27 16:13 This 19 yrs old Female presents to ER via Ambulatory with complaints of gb1 Vaginal Bleeding, + Preg <12wks. 16:13 19-year-old female G1, P0 at unknown date of gestation for last menstrual period is gb1 here with vaginal bleeding and pain yesterday. Patient was here on Friday and was told to come back and return if she had more pain... 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 - Infectious Disease History:: Denies. - Social history:: Smoking status: Patient denies any tobacco usage or history of. Exam: 16:13 Constitutional: This is a well developed, well nourished patient who is awake, alert, gb1 and in no acute distress. Head/Face: Normocephalic, atraumatic. Eyes: Pupils equal round and reactive to light, extra-ocular motions intact. Lids and lashes normal. Conjunctiva and sclera are non-icteric and not injected. Cornea within normal limits. Periorbital areas with no swelling, redness, or edema. ENT: Nares patent. No nasal discharge, no septal abnormalities noted. Tympanic membranes are normal and external auditory canals are clear. Oropharynx with no redness, swelling, or masses, exudates, or evidence of obstruction, uvula midline. Mucous membranes moist. Neck: Trachea midline, no thyromegaly or masses palpated, and no cervical lymphadenopathy. Supple, full range of motion without nuchal rigidity, or vertebral point tenderness. No Meningismus. Chest/axilla: Normal chest wall appearance and motion. Nontender with no deformity. No lesions are appreciated. Cardiovascular: Regular rate and rhythm with a normal S1 and S2. No gallops, murmurs, or rubs. Normal PMI, no JVD. No pulse deficits. Respiratory: Lungs have equal breath sounds bilaterally, clear to auscultation and percussion. No rales, rhonchi or wheezes noted. No increased work of breathing, no retractions or nasal flaring. Abdomen/GI: Soft, non-tender, with normal bowel sounds. No distension or tympany. No guarding or rebound. No evidence of tenderness throughout. Back: No spinal tenderness. No costovertebral tenderness. Full range of motion. Pelvic Exam: Normal external genitalia. Speculum exam with closed cervical os, no discharge or bleeding noted. Bimanual exam with normal adnexa, no adnexal or cervical motion tenderness. Normal uterus. Skin: Warm, dry with normal turgor. Normal color with no rashes, no lesions, and no evidence of cellulitis. MS/ Extremity: Pulses equal, no cyanosis. Neurovascular intact. Full, normal range of motion. Neuro: Awake and alert, GCS 15, oriented to person, place, time, and situation. Cranial nerves II-XII grossly intact. Motor strength 5/5 in all extremities. Sensory grossly intact. Cerebellar exam normal. Normal gait. Vital Signs: 13:18 BP 116 / 59; Pulse 77; Resp 17; Temp 98.3(O); Pulse Ox 100% ; Weight 58.97 kg; Height 5 ap3 ft. 2 in. ; 13:30 BP 106 / 62; Pulse 70; Resp 15; Pulse Ox 100% ; cm10 14:00 BP 104 / 59; Pulse 65; Resp 18; Pulse Ox 100% ; cm10 15:00 BP 96 / 54; Pulse 72; Resp 15; Pulse Ox 100% ; cm10 16:10 BP 112 / 68; Pulse 60; Resp 15; Pulse Ox 97% ; cm10 17:32 BP 114 / 71; Pulse 72; Resp 15; Temp 98.3; Pulse Ox 100% on R/A; cm10 13:18 Body Mass Index 23.78 (58.97 kg, 157.48 cm) ap3 MDM: 13:16 Medical Screening Exam initiated gb1 16:13 Data reviewed: vital signs, nurses notes, lab test result(s), radiologic studies, gb1 ultrasound. ED course: 19-year-old G1, P0 at unknown weeks gestation here with a beta hCG quant of 3656. Patient was here on 427 with a quant of 580 and an empty uterus. Patient also has an ultrasound consistent with an empty uterus today concern for ectopic . No signs in the adnexa or any free fluid to suggest ruptured ectopic. Patient has a normal blood pressure and does not have any vaginal hemorrhaging. I will transfer her to higher level of care at [place] to be evaluated by gold stamper. I discussed the case with Dr. Janneth Borjas who accepted the patient to the [place] ED. I also discussed the case with the accepting ER physician [place] who accepted the patient without any reservations. I discussed the plan of care with the patient she is compliant. Patient is B+ not indicated for RhoGAM at this time. She is vitally stable with a stable hematocrit and hemoglobin as well. Patient is compliant with the plan of care for transfer.. 08/27 13:15 Order name: Abo/rh Typing; Complete Time: 15:05 page hospital 08/27 13:15 Order name: Basic Metabolic Panel; Complete Time: 15:05 page hospital 08/27 13:15 Order name: CBC with Diff; Complete Time: 15:42 gb 08/27 13:15 Order name: Test, Urine; Complete Time: 13:57 gb 08/27 13:15 Order name: Quantitative Hcg; Complete Time: 15:05 page hospital 08/27 15:33 Order name: CBC Smear Scan; Complete Time: 15:42 EDMS 08/27 13:59 Order name: US Transvaginal Ob; Complete Time: 15:05 page hospital 08/27 13:15 Order name: IV Saline Lock; Complete Time: 13:47 gb1 08/27 13:15 Order name: Labs collected and sent; Complete Time: 13:47 gb1 08/27 13:15 Order name: NPO; Complete Time: 13:47 gb1 Administered Medications: No medications were administered Disposition Summary: 08/27/24 16:11 Transfer Ordered Notes: Transfer Location: [facility] gb1 Reason: Higher level of care gb1 Condition: Stable gb1 Problem: new gb1 Symptoms: have worsened gb1 Accepting Physician: Dr.Monique Borjas(08/27/24 17:32) cm10 Diagnosis - related conditions, unspecified, first trimester gb1 - Other hemorrhage in early gb1 Forms: - Medication Reconciliation Form gb1 - SBAR form gb1 Critical care time excluding procedures: 16:18 Critical care time: Bedside Care: 100 minutes, Consultation: 45 minutes, Family gb1 Intervention: 20 minutes. Total time: 165 minutes Signatures: Dispatcher [employer] Radha Frost RN RN ap3 Luma Golden RN RN cm10 Katelyn Belcher MD MD gb1 Corrections: (The following items were deleted from the chart) 17:32 16:11 Dr.Monique Borjas gb1 cm10
--- NOTE | 2024-08-27 16:11 | ER ---
Nurse's Notes [facility] Name: Betzaida Ramires Age: 19 yrs Sex: Female : 2005 Arrival Date: 08/27/2024 Time: 13:10 Bed 13 Private MD: Diagnosis: related conditions, unspecified, first trimester;Other hemorrhage in early Presentation: 08/27 13:18 Chief complaint: Patient states: she was evaluated on Friday, but was informed they ap3 couldn't determine if she was having an ectopic or a miscarriage. patient reports continued vaginal bleeding until yesterday, of which she reports has improved. Coronavirus screen: At this time, the client does not indicate any symptoms associated with coronavirus-19. Ebola Screen: No symptoms or risks identified at this time. Initial Sepsis Screen: Does the patient meet any 2 criteria? No. Patient's initial sepsis screen is negative. Does the patient have a suspected source of infection? No. Patient's initial sepsis screen is negative. Risk Assessment: Do you want to hurt yourself or someone else? Patient reports no desire to harm self or others. Onset of symptoms is unknown. 13:18 Method Of Arrival: Ambulatory ap3 13:18 Acuity: BARRIE 3 ap3 Triage Assessment: 13:21 General: Appears in no apparent distress. Behavior is calm, cooperative, appropriate ap3 for age. Pain: Denies pain. Neuro: Level of Consciousness is awake, alert, obeys commands, Oriented to person, place, time, situation, Appropriate for age. Cardiovascular: Patient's skin is warm and dry. Respiratory: Airway is patent Respiratory effort is even, unlabored, Respiratory pattern is regular, symmetrical. : Reports vaginal bleeding that is. 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 - Infectious Disease History:: Denies. - Social history:: Smoking status: Patient denies any tobacco usage or history of. Screenin:21 Abuse screen: Denies threats or abuse. Nutritional screening: No deficits noted. ap3 Tuberculosis screening: No symptoms or risk factors identified. 17:32 [facility] ED Fall Risk Assessment (Adult) History of falling in the last 3 months, cm10 including since admission No falls in past 3 months (0 pts) Confusion or Disorientation No (0 pts) Intoxicated or Sedated No (0 pts) Impaired Gait No (0 pts) Mobility Assist Device Used No (0 pt) Altered Elimination No (0 pt) Score/Fall Risk Level 0 - 2 = Low Risk Oriented to surroundings, Maintained a safe environment, Hourly rounding (assess needs \T\ fall precautionary measures) done. Assessment: 13:56 General: Appears in no apparent distress. comfortable, Behavior is calm, cooperative, cm10 appropriate for age. Pain: Denies pain. Neuro: No deficits noted. Level of Consciousness is awake, alert, obeys commands, Oriented to person, place, time, situation, Appropriate for age. Respiratory: No deficits noted. Airway is patent Respiratory effort is even, unlabored, Respiratory pattern is regular, symmetrical. : Reports vaginal bleeding that is bright red. Musculoskeletal: No deficits noted. Range of motion: intact in all extremities. 16:10 Reassessment: Patient appears in no apparent distress at this time. Patient and/or cm10 family updated on plan of care and expected duration. Pain level reassessed. Patient is alert, oriented x 3, equal unlabored respirations, skin warm/dry/pink. 16:57 Reassessment: Report given to ALEXIA Macdonald at [facility] ED. cm10 Vital Signs: 13:18 BP 116 / 59; Pulse 77; Resp 17; Temp 98.3(O); Pulse Ox 100% ; Weight 58.97 kg; Height 5 ap3 ft. 2 in. ; 13:30 BP 106 / 62; Pulse 70; Resp 15; Pulse Ox 100% ; cm10 14:00 BP 104 / 59; Pulse 65; Resp 18; Pulse Ox 100% ; cm10 15:00 BP 96 / 54; Pulse 72; Resp 15; Pulse Ox 100% ; cm10 16:10 BP 112 / 68; Pulse 60; Resp 15; Pulse Ox 97% ; cm10 17:32 BP 114 / 71; Pulse 72; Resp 15; Temp 98.3; Pulse Ox 100% on R/A; cm10 13:18 Body Mass Index 23.78 (58.97 kg, 157.48 cm) ap3 ED Course: 13:12 Patient arrived in ED. mr 13:15 Katelyn Belcher MD is Attending Physician. gb1 13:21 Triage completed. ap3 13:22 Arm band placed on right wrist. ap3 13:22 Patient has correct armband on for positive identification. Bed in low position. Call ap3 light in reach. Side rails up X 1. Adult w/ patient. Pulse ox on. NIBP on. 13:47 Luma Golden, RN is Primary Nurse. cm10 13:47 Abo/rh Typing Sent. cm10 13:47 Basic Metabolic Panel Sent. cm10 13:47 CBC with Diff Sent. cm10 13:47 Test, Urine Sent. cm10 13:48 Quantitative Hcg Sent. cm10 13:48 Initial lab(s) drawn, by sc, sent to lab. Urine collected: clean catch specimen. cm10 Inserted saline lock: 20 gauge in right forearm, using aseptic technique. Blood collected. Flushed with 10 mL NS. 14:39 US Transvaginal Ob In Process Unspecified. EDMS 15:11 attempted to initiate a transfer with the [facility] transfer center and placed on hold.eb 15:16 initiated a transfer with Cira from the [facility] Transfer [place]. eb 16:[address] Borjas the APPELLATE CONFEREE intervention teacher for [facility] with Dr. Ye zamora for patient transfer consultation. 16:13 connected the ED doctor intervention teacher for [facility] with Ye Powers for patient eb transfer consultation. 16:16 administrative approval given by Cira Cummings/ patient has been accepted to [facility] ED/ Dr. Janneth Borjas has accepted the patient in transfer / report to be called to [phone]. 17:31 Report given to Edgar with [facility]. cm10 17:31 No provider procedures requiring assistance completed. Patient transferred, IV remains cm10 in place. 17:32 Provided Education on: Need for transfer. cm10 Administered Medications: No medications were administered Medication: 13:56 VIS not applicable for this client. cm10 Outcome: 16:11 ER care complete, transfer ordered by . eliane 17:31 Transferred by ground EMS [facility]. to [facility], [facility], Transfer cm10 form completed. 17:31 Condition: stable 17:31 Instructed on the need for transfer, 17:32 Patient left the ED. cm10 Signatures: Dispatcher [employer] EDAfia Reyes, Baljeet Delong mr Radha Dahl, RN RN ap3 Elina Packer Clarissa, RN RN cm10 Katelyn Belcher MD MD gb1
[2024-08-27 17:46] VITALS: TEMP 98.3
[2024-08-27 18:04] VITALS: BP 114/71; O2SAT 100
== END 2024-08-27 17:32 | disposition short-term general hospital (02) ==
LOC: ER 13:10
DX: O20.8 Other hemorrhage in early pregnancy (principal); Z3A.00 Weeks of gestation of pregnancy not specified
CPT/HCPCS: 36415; 76817; 80048; 81025; 84702; 85025; 86900; 86901; 99285

== ENCOUNTER 2024-08-31 08:22 | Emergency (ER) | payer OTHER, SELFPAY ==
[2024-08-31] MEDS ORDERED: NA CHLORIDE 0.9% 1,000 ML ONE ×2 (08:32→09:43)
[2024-08-31 09:01] LABS: Absolute Basophils 0.1 K/uL (0-0.5); Absolute Lymphocytes (CBC) 2.1 K/uL (0.7-4.9); Absolute Monocytes 0.9 K/uL (0.1-1.3); Absolute Neutrophil 10.9 K/uL (1.8-8.0); Basophils % 0.5 % (0-1.3); Eosinophils % 0.3 % (0-4.4); Hematocrit 39.5 % (36.0-45.0); Hemoglobin 14.1 g/dL (12.0-15.0); Lymphocytes % 14.9 % (15.3-44.8); MCH 30.2 pg (27.0-35.0); MCHC 35.8 g/dL (32.0-36.0); MCV 84.4 fL (80-100); MPV 8.7 fL (7.6-11.3); Monocytes % 6.4 % (3.3-12.3); Neutrophils % 77.9 % (41.7-73.7); Nucleated Red Blood Cells % 0.1 % (0-0); Platelets 244 thou/uL (152-406); RBC Red Blood Cell Count 4.67 M/uL (3.86-4.86); Red Cell Distribution Width 13.2 % (12.1-15.2)
[2024-08-31] MEDS ORDERED: ONDANSETRON 4 MG/2 ML VIAL ONE (09:38)
[2024-08-31] MEDS ORDERED: FENTANYL CITR 100 MCG/2 ML ONE ×3 (09:38→10:13)
--- NOTE | 2024-08-31 09:38 | ER ---
Nurse's Notes [facility] [place] Name: Betzaida Ramires Age: 19 yrs Sex: Female : 2005 Arrival Date: 08/31/2024 Time: 08:22 Bed 17 Private MD: Diagnosis: Other ectopic without intrauterine -RUPTURED WITH HEART BEAT;Hemoperitoneum-SECONDARY TO RUPTURED ECTOPIC Presentation: 08/31 08:41 Chief complaint: Hospitalized at [facility] last weekend for abdominal pain and bleeding with hb positive hcg levels, reports RLQ pain 10/10 pain today. Unknown LMP. Coronavirus screen: At this time, the client does not indicate any symptoms associated with coronavirus-19. Ebola Screen: No symptoms or risks identified at this time. Initial Sepsis Screen: Does the patient meet any 2 criteria? No. Patient's initial sepsis screen is negative. Does the patient have a suspected source of infection? No. Patient's initial sepsis screen is negative. Risk Assessment: Do you want to hurt yourself or someone else? Patient reports no desire to harm self or others. Onset of symptoms was August 22, 2024. 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 - Infectious Disease History:: Denies. - Social history:: Smoking status: Patient denies any tobacco usage or history of. - Family history:: not pertinent. Screenin:56 [facility] ED Fall Risk Assessment (Adult) History of falling in the last 3 months, mb9 including since admission No falls in past 3 months (0 pts) Confusion or Disorientation No (0 pts) Intoxicated or Sedated No (0 pts) Impaired Gait No (0 pts) Mobility Assist Device Used No (0 pt) Altered Elimination No (0 pt) Score/Fall Risk Level 3 or more points = High Risk Oriented to surroundings, Maintained a safe environment, Educated pt \T\ family on fall prevention, incl call for assistance when getting out of bed, Assessed \T\ reinforced patient's understanding of fall precautions, Hourly rounding (assess needs \T\ fall precautionary measures) done. Abuse screen: Denies threats or abuse. Nutritional screening: No deficits noted. Tuberculosis screening: No symptoms or risk factors identified. Assessment: 08:55 General: Appears uncomfortable. Pain: Complains of pain in abdomen Pain radiates to RLQ mb9 Pain currently is 10 out of 10 on a pain scale. Quality of pain is described as throbbing, Pain began suddenly. Neuro: Lam Agitation-Sedation Scale (RASS): 0 - Alert and Calm Level of Consciousness is awake, alert, obeys commands, Oriented to person, place, time, situation, Appropriate for age. Neuro: Reports dizziness. Cardiovascular: Patient's skin is warm and dry. Respiratory: Airway is patent Respiratory effort is even, unlabored, Respiratory pattern is regular, symmetrical. GI: Abdomen is flat, non-distended, Bowel sounds present X 4 quads. Abd is soft Abdomen is tender to palpation in right lower quadrant. : Reports vaginal bleeding that is bright red, heavy flow. EENT: No signs and/or symptoms were reported regarding the EENT system. Derm: Skin is pink, warm \T\ dry. Musculoskeletal: Range of motion: intact in all extremities. 09:00 Reassessment: pt taken to ultrasound via stretcher. mb9 09:40 Reassessment: Patient and/or family updated on plan of care and expected duration. Pain mb9 level reassessed. Patient is alert, oriented x 3, equal unlabored respirations, skin warm/dry/pink. Patient states symptoms have not improved. 09:50 Reassessment: Report given to transferring nurse Rosy at [facility]. mb9 10:23 Reassessment: Patient and/or family updated on plan of care and expected duration. Pain mb9 level reassessed. Patient is alert, oriented x 3, equal unlabored respirations, skin warm/dry/pink. Patient states symptoms have not improved. 10:23 Reassessment: Report given to Maycol Florentino. mb9 Vital Signs: 08:41 BP 120 / 60; Pulse 72; Resp 16; Temp 97.9(O); Pulse Ox 100% on R/A; Weight 58.97 kg; hb Height 5 ft. 2 in. ; Pain 10/10; 09:50 BP 121 / 69; Pulse 70; Resp 18; Pulse Ox 100% on R/A; mb9 10:15 BP 115 / 68; Pulse 66; Resp 16; Pulse Ox 100% on R/A; mb9 08:41 Body Mass Index 23.78 (58.97 kg, 157.48 cm) hb 08:41 Pain Scale: Adult hb ED Course: 08:26 Patient arrived in ED. al6 08:33 Solomon Solis MD is Attending Physician. mir 08:36 Afia Gayle RN is Primary Nurse. mb9 08:45 Triage completed. hb 08:45 Arm band placed on. hb 08:56 Placed in gown. Bed in low position. Call light in reach. Side rails up X 1. Provided mb9 Education on: press call light if needing anything. Client placed on continuous cardiac and pulse oximetry monitoring. NIBP monitoring applied. 08:56 No provider procedures requiring assistance completed. Initial lab(s) drawn, by hi, mbEdouard sent to lab. Inserted saline lock: 18 gauge in right antecubital area, using aseptic technique. Blood collected. Flushed with 10 mL NS. 09:00 Door closed. Noise minimized. Warm blanket given. Pillow given. mb9 09:00 One-on-one care X 15 minutes. mb9 09:24 Transvaginal Ob In Process Unspecified. EDMS 09:[address] [facility] initiated by Dr Solis. bd 09:46 pt accepted in transfer to [facility] ER by dr Ac admin approval given by adarsh Bailon RN. 09:50 Patient transferred, IV remains in place. mb9 10:04 Inserted saline lock: 20 gauge in left forearm, using aseptic technique. Blood mb9 collected. Flushed with 10 mL NS. Administered Medications: 08:54 Drug: NS 0.9% IV 1000 ml IV at 1000 ml once; to be given as a bolus over 60 minutes mb9 Route: IV; Rate: 1000 ml; Site: right antecubital; 09:42 Follow up: Response: No adverse reaction; IV Status: Completed infusion mb9 09:35 Drug: Ondansetron IVP 4 mg IVP once; over 2 minutes Route: IVP; Site: right antecubital;mb9 09:48 Follow up: Response: No adverse reaction mb9 09:41 Drug: fentaNYL (PF) IVP 50 mcg IVP once Route: IVP; Site: right antecubital; mb9 10:05 Follow up: Response: Pain is unchanged, physician notified mb9 09:48 Drug: ceFAZolin IVPB 1 grams IVPB once Route: IVPB; Site: right antecubital; mb9 10:05 Follow up: Response: No adverse reaction; IV Status: Completed infusion mb9 09:48 Drug: NS 0.9% IV 1000 ml IV at 1000 ml once; to be given as a bolus over 60 minutes mb9 Route: IV; Rate: 1000 ml; Site: right antecubital; 09:50 Follow up: IV Status: Infusion continued upon transfer mb9 10:03 Drug: fentaNYL (PF) IVP 25 mcg IVP once Route: IVP; Site: right antecubital; mb9 10:22 Follow up: Response: No adverse reaction mb9 10:22 Drug: fentaNYL (PF) IVP 25 mcg IVP once Route: IVP; Site: right antecubital; mb9 10:23 Follow up: Response: No adverse reaction mb9 Medication: 08:56 VIS not applicable for this client. mb9 Outcome: 09:38 ER care complete, transfer ordered by MD. hester 10:23 Transferred by helicopter to [facility], Transfer form mb9 completed. X-rays sent w/ patient. 10:23 Condition: stable 10:23 Instructed on the need for transfer, 10:26 Patient left the ED. mb9 Signatures: Dispatcher [employer] EDMS Tawny Olsen Corey, MD MD cha Baxter, Heather RN RN Afia Drummond RN RN mb9 Conchita Lea Corrections: (The following items were deleted from the chart) 08:46 08:41 Chief complaint: Hospitalized at [facility] last weekend for abdominal pain and hb bleeding with positive hcg levels, reports RLQ pain 10/10 pain today. hb 10:55 10:05 Reassessment: Patient and/or family updated on plan of care and expected mb9 duration. Pain level reassessed. Patient is alert, oriented x 3, equal unlabored respirations, skin warm/dry/pink. Patient states symptoms have not improved. mb9
--- NOTE | 2024-08-31 09:38 | EDPHYS ---
Physician Documentation [facility] Name: Betzaida Ramires Age: 19 yrs Sex: Female : 2005 Arrival Date: 08/31/2024 Time: 08:22 Bed 17 Private MD: NAYELY Physician Solomon Solis HPI: 08/31 09:31 This 19 yrs old Female presents to ER via Ambulatory with complaints of mir Abdominal Pain, Vaginal Bleeding. 09:31 The patient presents with pelvic pain, that is located in/on the abdomen. Onset: The mir symptoms/episode began/occurred 2 day(s) ago. Modifying factors: The symptoms are alleviated by nothing, the symptoms are aggravated by nothing. Associated signs and symptoms: The patient has no apparent associated signs or symptoms. Severity of symptoms: At their worst the symptoms were moderate, in the emergency department the symptoms are unchanged. The patient is sexually active, reportedly has a single partner. The patient has not experienced similar symptoms in the past. 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 - Infectious Disease History:: Denies. - Social history:: Smoking status: Patient denies any tobacco usage or history of. - Family history:: not pertinent. ROS: 09:31 Constitutional: Negative for fever, chills, and weight loss, Eyes: Negative for injury, mir pain, redness, and discharge, ENT: Negative for injury, pain, and discharge, Neck: Negative for injury, pain, and swelling, Cardiovascular: Negative for chest pain, palpitations, and edema, Respiratory: Negative for shortness of breath, cough, wheezing, and pleuritic chest pain, Back: Negative for injury and pain, : Negative for injury, bleeding, discharge, and swelling, MS/Extremity: Negative for injury and deformity, Skin: Negative for injury, rash, and discoloration, Neuro: Negative for headache, weakness, numbness, tingling, and seizure, Psych: Negative for depression, anxiety, suicide ideation, homicidal ideation, and hallucinations, Allergy/Immunology: Negative for hives, rash, and allergies, Endocrine: Negative for neck swelling, polydipsia, polyuria, polyphagia, and marked weight changes, Hematologic/Lymphatic: Negative for swollen nodes, abnormal bleeding, and unusual bruising, 09:31 Abdomen/GI: Positive for abdominal pain, of the right lower quadrant and left lower quadrant, Exam: 09:31 Constitutional: This is a well developed, well nourished patient who is awake, alert, mir and in no acute distress. Head/Face: Normocephalic, atraumatic. Eyes: Pupils equal round and reactive to light, extra-ocular motions intact. Lids and lashes normal. Conjunctiva and sclera are non-icteric and not injected. Cornea within normal limits. Periorbital areas with no swelling, redness, or edema. ENT: Nares patent. No nasal discharge, no septal abnormalities noted. Tympanic membranes are normal and external auditory canals are clear. Oropharynx with no redness, swelling, or masses, exudates, or evidence of obstruction, uvula midline. Mucous membranes moist. Neck: Trachea midline, no thyromegaly or masses palpated, and no cervical lymphadenopathy. Supple, full range of motion without nuchal rigidity, or vertebral point tenderness. No Meningismus. Chest/axilla: Normal chest wall appearance and motion. Nontender with no deformity. No lesions are appreciated. Cardiovascular: Regular rate and rhythm with a normal S1 and S2. No gallops, murmurs, or rubs. Normal PMI, no JVD. No pulse deficits. Respiratory: Lungs have equal breath sounds bilaterally, clear to auscultation and percussion. No rales, rhonchi or wheezes noted. No increased work of breathing, no retractions or nasal flaring. Back: No spinal tenderness. No costovertebral tenderness. Full range of motion. Female : Normal external genitalia. Skin: Warm, dry with normal turgor. Normal color with no rashes, no lesions, and no evidence of cellulitis. MS/ Extremity: Pulses equal, no cyanosis. Neurovascular intact. Full, normal range of motion., bilateral aka Neuro: Awake and alert, GCS 15, oriented to person, place, time, and situation. Cranial nerves II-XII grossly intact. Motor strength 5/5 in all extremities. Sensory grossly intact. Cerebellar exam normal. Normal gait. Psych: Awake, alert, with orientation to person, place and time. Behavior, mood, and affect are within normal limits. 09:31 Abdomen/GI: Inspection: abdomen appears normal, Bowel sounds: normal, Palpation: moderate abdominal tenderness, in the right lower quadrant and left lower quadrant, Liver: no appreciated palpable abnormalities, Hernia: not appreciated, Vital Signs: 08:41 BP 120 / 60; Pulse 72; Resp 16; Temp 97.9(O); Pulse Ox 100% on R/A; Weight 58.97 kg; hb Height 5 ft. 2 in. ; Pain 10/10; 09:50 BP 121 / 69; Pulse 70; Resp 18; Pulse Ox 100% on R/A; mb9 10:15 BP 115 / 68; Pulse 66; Resp 16; Pulse Ox 100% on R/A; mb9 08:41 Body Mass Index 23.78 (58.97 kg, 157.48 cm) hb 08:41 Pain Scale: Adult hb MDM: 08:33 Medical Screening Exam initiated mir 09:50 Data reviewed: vital signs, nurses notes, lab test result(s), CBC, electrolytes, [facility] hepatic panel, urinalysis, radiologic studies, plain films, ultrasound, BE. Management of patient was discussed with the following: Shredding Specialist: KARUNA GARCIA. Test considered but Not performed: MRI: NO PELVIS MRI. Historians other than the Patient: PT WELL INFORMED. Care significantly affected by the following chronic conditions: NONE. 08/31 08:34 Order name: Abo/rh Typing [facility] 08/31 08:34 Order name: Basic Metabolic Panel; Complete Time: 09:43 [facility] 08/31 08:34 Order name: CBC with Diff; Complete Time: 09:38 [facility] 08/31 08:34 Order name: Quantitative Hcg; Complete Time: 09:43 [facility] 08/31 09:58 Order name: Type And Screen hb 08/31 08:52 Order name: US Transvaginal Ob [facility] 08/31 08:34 Order name: IV Saline Lock; Complete Time: 08:54 mir 08/31 08:34 Order name: Labs collected and sent; Complete Time: 08:55 [facility] 08/31 08:34 Order name: NPO; Complete Time: 08:37 [facility] 08/31 09:39 Order name: IV Saline Lock - Large Bore; Complete Time: 09:41 mir Administered Medications: 08:54 Drug: NS 0.9% IV 1000 ml IV at 1000 ml once; to be given as a bolus over 60 minutes mb9 Route: IV; Rate: 1000 ml; Site: right antecubital; 09:42 Follow up: Response: No adverse reaction; IV Status: Completed infusion mb9 09:35 Drug: Ondansetron IVP 4 mg IVP once; over 2 minutes Route: IVP; Site: right antecubital;mb9 09:48 Follow up: Response: No adverse reaction mb9 09:41 Drug: fentaNYL (PF) IVP 50 mcg IVP once Route: IVP; Site: right antecubital; mb9 10:05 Follow up: Response: Pain is unchanged, physician notified mb9 09:48 Drug: ceFAZolin IVPB 1 grams IVPB once Route: IVPB; Site: right antecubital; mb9 10:05 Follow up: Response: No adverse reaction; IV Status: Completed infusion mb9 09:48 Drug: NS 0.9% IV 1000 ml IV at 1000 ml once; to be given as a bolus over 60 minutes mb9 Route: IV; Rate: 1000 ml; Site: right antecubital; 09:50 Follow up: IV Status: Infusion continued upon transfer mb9 10:03 Drug: fentaNYL (PF) IVP 25 mcg IVP once Route: IVP; Site: right antecubital; mb9 10:22 Follow up: Response: No adverse reaction mb9 10:22 Drug: fentaNYL (PF) IVP 25 mcg IVP once Route: IVP; Site: right antecubital; mb9 10:23 Follow up: Response: No adverse reaction mb9 Disposition Summary: 08/31/24 09:38 Transfer Ordered Notes: Transfer Location: [facility] mir Reason: Higher level of care mir Condition: Stable mir Problem: an ongoing problem mir Symptoms: have worsened mir Accepting Physician: to [facility](08/31/24 10:26) mb9 Diagnosis - Other ectopic without intrauterine - RUPTURED WITH HEART BEAT mir - Hemoperitoneum - SECONDARY TO RUPTURED ECTOPIC imr Forms: - Medication Reconciliation Form mir - SBAR form mir Signatures: Dispatcher [employer] EDSolomon Castillo MD MD cha Baxter, Heather, RN RN Afia Drummond RN RN mb9 Corrections: (The following items were deleted from the chart) 08:35 08:35 Transvaginal Study (Probe)+US.RAD.BRZ ordered. EDMS EDMS 08:52 08:52 Transvaginal Ob+US.RAD.BRZ ordered. EDMS EDMS 09:54 09:38 to [facility] 09:59 09:59 TYPE AND SCREEN+BB.LAB.BRZ ordered. EDMS EDMS 10:26 09:54 to [facility]
[2024-08-31 09:43] LABS: Anion Gap 7.7 mEq/L (5.0-15.0); Potassium 3.7 mEq/L (3.5-5.1)
[2024-08-31] MEDS ORDERED: NA CHLORIDE 0.9% 100 ML ONE (09:43)
[2024-08-31] MEDS ORDERED: CEFAZOLIN SODIUM 1 GM/VIAL ONE (09:43)
--- NOTE | 2024-08-31 09:58 | RAD REPORT ---
EXAMINATION: Transvaginal OB COMPARISON: None. HISTORY: ABD CRAMPING, TECHNIQUE: Real-time ultrasound was performed through the pelvis. A transvaginal scan was performed t o better visualize the intrauterine contents and adnexa. FINDINGS: No IUP is seen within the uterus. In the right adnexa there is a small sac with a yolk sac and small embryo demonstrating 95 bpm compatible with live ectopic . Moderate hemorrhagic fluid is present in the pelvis. Examination is limited by significant patient pain. IMPRESSION: The findings are compatible with live right adnexal ectopic which is ruptured. Moderate hem orrhagic material in the pelvis. The findings were communicated with Solomon Solis MD at 08/31/2024 9:31 AM by telephone.
[2024-08-31 13:01] VITALS: TEMP 97.9; O2SAT 100
[2024-08-31 13:08] VITALS: BP 121/69
== END 2024-08-31 10:26 | disposition short-term general hospital (02) ==
LOC: ER 08:22
DX: O00.80 Other ectopic pregnancy without intrauterine pregnancy (principal); K66.1 Hemoperitoneum
CPT/HCPCS: 36415; 76817; 80048; 84702; 85025; 86850; 86900; 86901; 96361; 96365; 96375; 99285; J0690; J2405; J3010; J7030